=== PATIENT | male | born 1965 | race African-American/Black ===

== ENCOUNTER 2017-12-08 06:39 | Observation (INO) | payer MEDICARE, MEDICAID ==
[2017-12-08 07:39] LABS: ALT (SGPT) 8 U/L (8-55); AST (SGOT) 12 U/L (5-34); Alkaline Phosphatase 70 U/L (40-150); Anion Gap 13 mmol/L (10-20); BUN (Urea Nitrogen) 39 mg/dL (8.4-25.7); Bilirubin, Total 0.6 mg/dL (0.2-1.2); Calc. Creatinine Clearance 0 mL/min (70-130); Calcium 9.5 mg/dL (7.8-10.44); Carbon Dioxide 28 mmol/L (22-29); Chloride 103 mmol/L (98-107); Estimated GFR-MDRD 8; Glucose 89 mg/dL (70-105); Potassium 5.4 mmol/L (3.5-5.1); Sodium 139 mmol/L (136-145)
--- NOTE | 2017-12-08 07:45 | RAD ---
TWO AP VIEWS OF THE CHEST: INDICATION: Shortness of breath and wheezing. COMPARISON: Prior exam dated 10/17/12. IMPRESSION: There is an endograft stent in the region of the left subclavian and left axillary region which is ne w. Previously seen right IJ dialysis is no longer present. The lungs are hyperinflated but clear. Cardiomediastinal silhouette is within normal limits. No acute osseous abnormality is evident. POS: [facility]
[2017-12-08 07:51] LABS: #Basophils 0.1 thou/uL (0.0-0.2); #Eosinphils 2.1 thou/uL (0.0-0.7); #Lymphocytes 1.9 thou/uL (1.20-3.40); #Monocytes 0.8 thou/uL (0.11-0.59); %Eosinophils 23.5 % (0.0-10.0); %Lymphocytes 21.2 % (21.0-51.0); %Monocytes 8.8 % (0.0-10.0); %Neutrophils 45.5 % (42.0-75.0); Hemoglobin 11.4 g/dL (14.0-18.0); Mean Corpuscular HGB CONC 32.8 g/dL (32.0-36.0); Mean Corpuscular Hemoglobin 30.7 pg (27.0-31.0); Mean Corpuscular Volume 93.8 fL (78.0-98.0); Mean Platelet Volume 9.7 fL (7.4-10.4); Platelet Count 102 thou/uL (130-400); RBC Distribution Width 15.1 % (11.5-14.5); Red Blood Cell (RBC) Count 3.71 mill/uL (4.70-6.10); White Blood Cell (WBC) Count 8.9 thou/uL (4.8-10.8)
[2017-12-08] MEDS ORDERED: Magnesium 2 GM/NS 0.9% 100 ML 2 GM in Premix Bag 1 BAG IVPB SCH (08:30)
[2017-12-08] MEDS ORDERED: Magnesium Sulfate 2 GM in Sodium Chloride 0.9% 100 ML IVPB SCH (08:30)
[2017-12-08 11:28] LABS: Amphetamine Not Detected (NotDetected); Barbiturates Screen Not Detected (NotDetected); Benzodiazepine Screen Not Detected (NotDetected); Cocaine Metabolite Screen Not Detected (NotDetected); Medtox Control Line Valid? VALID (VALID); Medtox Reader # READER 1; Methadone Not Detected (NotDetected); Methamphetamine Not Detected (NotDetected); Opiate Screen Detected (NotDetected); Oxycodone Screen Not Detected (NotDetected); Phencyclidine (PCP) Not Detected (NotDetected); THC/Cannabinoid Screen Not Detected (NotDetected); Tricyclic Screen Not Detected (NotDetected)
[2017-12-08 11:33] LABS: CKMB 3.9 ng/mL (0-6.6); Troponin I Less than 0.010 ng/mL (< 0.028)
[2017-12-08] MEDS ORDERED: Ondansetron ODT 4 MG TAB PO PRN (12:55)
[2017-12-08] MEDS ORDERED: Calcium Carbonate 500 MG ChewTAB PO PRN (12:55)
[2017-12-08] MEDS ORDERED: Nitroglycerin 0.4 MG TAB (25 Tab Bottle) PO PRN (12:55)
[2017-12-08] MEDS ORDERED: Acetaminophen 325 MG TAB PO PRN (12:55)
[2017-12-08] MEDS ORDERED: Ondansetron HCl/PF 4 MG/2 ML Vial IVP PRN (12:55)
[2017-12-08] MEDS ORDERED: Milk Of Magnesia 30 ML UDCUP PO PRN (12:55)
[2017-12-08] MEDS ORDERED: Mag-Al 1200 mg/1200 mg/30 ML UDCUP PO PRN (12:55)
--- NOTE | 2017-12-08 13:10 | HP ---
DATE OF ADMISSION: 12/08/2017 PRIMARY CARE PHYSICIAN: Kaylen Kramer. PRIMARY LEGAL EXECUTIVE: Dr. Kd Munoz. CHIEF COMPLAINT: Worsening shortness of breath of 2 weeks' duration. HISTORY OF PRESENT ILLNESS: The patient is a 52-year-old male with end-stage renal disease, on hemod ialysis; chronic diastolic heart failure and hypertension, who presented to the emergency room with w orsening shortness of breath over the last 2 weeks. He was seen at [facility] 2 weeks ago and was sent home on albuterol inhaler. Despite using albuterol inhaler, his shortne ss of breath has been worsening. He also has cough that is productive of thick whitish phlegm. He i s unable to lie down flat. He feels better when he sits on the side of the bed. He also had signifi cant wheezing. No fever, chills, sick contacts, shortness of breath, palpitations, lightheadedness, dizziness, syncope, recent immobilization, travel, heartburn reported. His symptoms got worse today at the dialysis for which he was sent to the emergency room for evaluation. In the emergency room, initial vital signs showed temperature 97.5, respirations 20, pulse rate of 86 with blood pressure of 164/108 with O2 saturation 99% on room air. EKG showed sinus rhythm with nimesh e peaked T waves in the anterior leads. Chest x-ray showed mild pulmonary vascular congestion withou t any infiltrate. He received a magnesium with nebulizer treatment in the emergency room. PAST MEDICAL HISTORY: 1. Hypertension. 2. End-stage renal disease, on hemodialysis Monday, Monday, and Monday. 3. History of negative stress test 8 months ago at [facility] per patient report. 4. Former smoker, quit 3 weeks ago. PAST SURGICAL HISTORY: 1. Incision and drainage of perirectal abscess in 2011. 2. Dialysis access. 3. Right ankle repair in 2005. 4. Jaw surgery in . ALLERGIES: No known drug allergies. CURRENT HOME MEDICATIONS: The patient does not remember any of his home medications. We will try to obtain from the dialysis unit or pharmacy. SOCIAL HISTORY: The patient currently lives at home with his family. He denies any current use of s moking, alcohol or drug use. He is a former cocaine user, last use approximately 5 years ago. He qu it smoking 3 weeks ago. He makes his own decisions with the help of his family. FAMILY HISTORY: Positive for heart disease and hypertension. REVIEW OF SYSTEMS: The following complete review of systems was negative, unless otherwise mentioned in the HPI or below: Constitutional: Weight loss or gain, ability to conduct usual activities. Skin: Rash, itching. Eyes: Double vision, pain. ENT/Mouth: Nose bleeding, neck stiffness, pain, tenderness. Cardiovascular: Palpitations, dyspnea on exertion, orthopnea. Respiratory: Shortness of breath, wheezing, cough, hemoptysis, fever or night sweats. Gastrointestinal: Poor appetite, abdominal pain, heartburn, nausea, vomiting, constipation, or diarrhea. Genitourinary: Urgency, frequency, dysuria, nocturia. Musculoskeletal: Pain, swelling. Neurologic/Psychiatric: Anxiety, depression. Allergy/Immunologic: Skin rash, bleeding tendency. PHYSICAL EXAMINATION: VITAL SIGNS: As discussed above. GENERAL: A 52-year-old male in mild distress, audible wheezing heard. HEENT: Head: Atraumatic, normocephalic. Sclerae are anicteric. Moist mucous membrane. No oral le suzanne. NECK: Supple, no JVD appreciated. No carotid bruit. LUNGS: Showed diffuse expiratory wheezing with rhonchi. There was scattered rales at bases. HEART: S1, S2 present. Regular rate and rhythm. No murmur, rubs, or gallops appreciated. ABDOMEN: Soft, nontender, bowel sounds present. EXTREMITIES: No edema or calf tenderness. NEUROLOGIC: Grossly nonfocal. Moves all four extremities. PSYCHIATRY: Alert, awake, oriented x3. SKIN: Warm and dry. LYMPH NODES: No palpable lymph nodes in the neck. PERIPHERAL VASCULAR: Radial pulses palpable bilaterally. MUSCULOSKELETAL: No joint swelling or tenderness. LABORATORY FINDINGS: Potassium 5.4 with BUN 39, creatinine 8.83, sodium 139. WBC 8.9 with neutrophi l 45.5, H&H was 11.4/34.8. Chest x-ray and EKG by my review as discussed above. IMPRESSION: 1. Shortness of breath secondary to acute bronchitis with volume overload. 2. Volume overload/acute on chronic diastolic heart failure, probably precipitated by hypertensive u rgency. 3. Hypertensive urgency. The patient took all of his medications this morning per patient report. 4. End-stage renal disease, on hemodialysis Monday, Monday, and Monday. 5. Hyperkalemia. 6. Anemia secondary to renal insufficiency. 7. Secondary hyperparathyroidism. PLAN: The patient will be monitored as a 23-hour observation. Per patient report, he had a negative stress test approximately 8 months ago. We will resume all of his antihypertensives. He received 1 dose of steroids by EMS. We will continue IV steroids and add antibiotics due to significant wheezi ng. There was no pneumonia noted on the chest x-ray. Serial troponins will be obtained. Nephrology will be consulted for maintenance hemodialysis. Plan of care was discussed with the patient in detail. He stated understanding. The patient was counseled to be compliant with his medication. He was also counseled to be compliant with low salt diet. Fluid restriction was emphasized.
[2017-12-08 14:22] LABS: Troponin I 0.015 ng/mL (< 0.028)
[2017-12-08 16:37] LABS: Troponin I 0.015 ng/mL (< 0.028)
[2017-12-08] MEDS ORDERED: Loratadine 10 MG TAB PO SCH (17:00)
[2017-12-08 17:44] VITALS: BMI 21.4
[2017-12-08] MEDS: Cefdinir 300 MG CAP PO SCH (18:37)
[2017-12-08] MEDS: guaiFENesin ER 600 MG TAB PO SCH (20:13)
[2017-12-08] MEDS: Doxycycline 100 MG CAP PO SCH (20:13)
[2017-12-09 04:41] LABS: Anion Gap 15 mmol/L (10-20); BUN (Urea Nitrogen) 37 mg/dL (8.4-25.7); Calc. Creatinine Clearance 11 mL/min (70-130); Calcium 10.1 mg/dL (7.8-10.44); Carbon Dioxide 28 mmol/L (22-29); Chloride 99 mmol/L (98-107); Estimated GFR-MDRD 9; Glucose 128 mg/dL (70-105); Potassium 4.9 mmol/L (3.5-5.1); Sodium 137 mmol/L (136-145)
[2017-12-09] MEDS: guaiFENesin ER 600 MG TAB PO SCH (08:35)
[2017-12-09] MEDS: Doxycycline 100 MG CAP PO SCH (08:35)
[2017-12-09 15:25] VITALS: BP 142/82; TEMP 98.3
[2017-12-09] MEDS: Cefdinir 300 MG CAP PO SCH (16:56)
--- NOTE | 2017-12-10 09:02 | DIS ---
DATE OF DISCHARGE: 12/09/2017 DISCHARGE DISPOSITION: Home. FOLLOWUP: 1. Follow up with primary care physician at [facility]. 2. Maintenance hemodialysis per Dr. Kd Munoz. The patient was seen and examined on the day of discharge, denies any new complaints. BRIEF HOSPITAL COURSE: The patient is a 52-year-old male with end-stage renal disease on hemodialysi s, chronic diastolic heart failure and hypertension who presented to the hospital with worsening shor tness of breath of 2 weeks' duration. Please refer to the history and physical for further details. The patient was admitted to the hospital with a diagnosis of shortness of breath secondary to acute b ronchitis and volume overload. He underwent dialysis per Dr. Munoz. He was also started on steroid s with antibiotics for acute bronchitis. Today on the day of discharge, his wheezing has significant ly improved. He will be discharged home on a short taper of prednisone along with Omnicef. He appea rs stable for discharge. FINAL DIAGNOSES: 1. Shortness of breath secondary to acute bronchitis and volume overload. 2. Volume overload/acute on chronic diastolic heart failure, probably precipitated by hypertensive u rgency. 3. End-stage renal disease, on hemodialysis Monday, Monday, Monday. 4. Hyperkalemia with potassium of 5.4 on admission and so resolved. His potassium on the day of dis charge is 4.9. 5. Anemia secondary to renal insufficiency. 6. Secondary hyperparathyroidism. Plan of care was discussed with the patient in detail. He stated understanding.
== END 2017-12-09 17:28 | disposition home or self-care (01) ==
LOC: ERS 06:39 → 2SW 12:14
PROVIDERS: ADMIT Internal Medicine; ATTEND Internal Medicine
DX: J20.9 Acute bronchitis, unspecified (principal); I13.2 Hypertensive heart and chronic kidney disease with heart failure and with stage 5 chronic kidney disease, or end stage renal disease; N18.6 End stage renal disease; D63.1 Anemia in chronic kidney disease; N25.81 Secondary hyperparathyroidism of renal origin; E87.5 Hyperkalemia; I70.209 Unspecified atherosclerosis of native arteries of extremities, unspecified extremity; I50.33 Acute on chronic diastolic (congestive) heart failure; Z87.891 Personal history of nicotine dependence
CPT/HCPCS: 71045; 80048; 80053; 80306; 82553; 84484 ×2; 85025; 93005; 94640 ×3; 94760 ×2; 96365; 96375; 96376; 99285; G0378; 36415; 90935; G0257; J2920; J3475; J7050; J7620

== ENCOUNTER 2017-12-14 13:37 | Inpatient (IN) | payer MEDICARE, MEDICAID ==
[2017-12-14 14:18] LABS: #Basophils 0.1 thou/uL (0.0-0.2); #Eosinphils 0.6 thou/uL (0.0-0.7); #Lymphocytes 1.7 thou/uL (1.20-3.40); #Monocytes 0.9 thou/uL (0.11-0.59); #Neutrophils 7.3 thou/uL (1.40-6.50); %Basophils 0.6 % (0.0-1.0); %Lymphocytes 15.6 % (21.0-51.0); %Monocytes 8.8 % (0.0-10.0); %Neutrophils 68.9 % (42.0-75.0); Hemoglobin 11.1 g/dL (14.0-18.0); Mean Corpuscular HGB CONC 34.5 g/dL (32.0-36.0); Mean Corpuscular Hemoglobin 31.6 pg (27.0-31.0); Mean Corpuscular Volume 91.7 fL (78.0-98.0); Mean Platelet Volume 8.9 fL (7.4-10.4); Platelet Count 138 thou/uL (130-400); Red Blood Cell (RBC) Count 3.52 mill/uL (4.70-6.10); White Blood Cell (WBC) Count 10.7 thou/uL (4.8-10.8)
[2017-12-14 14:39] LABS: ALT (SGPT) 8 U/L (8-55); AST (SGOT) 12 U/L (5-34); Albumin 3.8 g/dL (3.5-5.0); Alkaline Phosphatase 79 U/L (40-150); Anion Gap 16 mmol/L (10-20); BUN (Urea Nitrogen) 58 mg/dL (8.4-25.7); Bilirubin, Total 0.4 mg/dL (0.2-1.2); CK (CPK) 165 U/L (30-200); Calc. Creatinine Clearance 0 mL/min (70-130); Calcium 9.7 mg/dL (7.8-10.44); Carbon Dioxide 27 mmol/L (22-29); Chloride 103 mmol/L (98-107); Estimated GFR-MDRD 7; Globulin 2.9 g/dL (2.4-3.5); Glucose 155 mg/dL (70-105); Potassium 4.4 mmol/L (3.5-5.1); Protein, Total 6.7 g/dL (6.0-8.3); Sodium 142 mmol/L (136-145)
[2017-12-14 14:43] LABS: CKMB 3.7 ng/mL (0-6.6); Troponin I 0.039 ng/mL (< 0.028)
--- NOTE | 2017-12-14 14:55 | RAD ---
AP VIEW OF THE CHEST: INDICATION: Chest pain. IMPRESSION: There is stable endovascular stent graft material seen in the left subclavicular and axillary region. There is mild right basilar atelectasis. The left lung is clear. No acute osseous abnormality is evident. POS: [facility]
--- NOTE | 2017-12-14 16:24 | HP ---
PRIMARY CARE PHYSICIAN: Kaylen Kramer. PRIMARY BICYCLE SERVICE TECHNICIAN: Dr. Kd Munoz. REASON FOR ADMISSION: Chest pain. HISTORY OF PRESENT ILLNESS: A 52-year-old -[place] male who has history of hypertension, end -stage renal disease on hemodialysis Monday, Monday, and Monday, who came to emergency room with c omplaint of chest pain. Patient reports that around 12:00 noon, when he was watching TV, at that rogerio e he was experiencing left-sided chest pain. He initially felt gas pain from medication and that dis comfort was radiating to his neck. Pain lasted for about 30 minutes. He also had 2 times vomiting. He denies any associated diaphoresis, palpitation and shortness of breath. Patient's chest pain sub sided by itself and after 1 or 2 hours later, again he had exactly similar chest pain and that is why he was concerned about heart and decided to come to the emergency room for evaluation. In the emerg ency room, he had again similar chest pain. Patient had echocardiogram which was unremarkable withou t any acute ischemic changes, but his troponin was slightly elevated. The patient reports that he to ok all his medication for blood pressure. He is due for dialysis tomorrow. At this point, we are ad mitting this patient in hospital for rule out acute coronary syndrome. He denies any relation of marcella st pain with food, respiration or activity. He denies any dizziness, syncope. He denies any orthopn ea, PND or leg swelling. He denies any fever or chills. He denies any cough. He feels that his bro nchitis significantly improved after recent admission and treated for bronchitis. He denies any hemo ptysis. He denies any constipation, diarrhea, melena or hematochezia. He denies any upper respirato ry infection at this point. He denies any sore throat. He denies any headache or focal motor or sen noemi symptoms. REVIEW OF SYSTEMS: The following complete review of systems was negative, unless otherwise mentioned in the HPI or below: Constitutional: Weight loss or gain, ability to conduct usual activities. Skin: Rash, itching. Eyes: Double vision, pain. ENT/Mouth: Nose bleeding, neck stiffness, pain, tenderness. Cardiovascular: Palpitations, dyspnea on exertion, orthopnea. Respiratory: Shortness of breath, wheezing, cough, hemoptysis, fever or night sweats. Gastrointestinal: Poor appetite, abdominal pain, heartburn, nausea, vomiting, constipation, or diarr hea. Genitourinary: Urgency, frequency, dysuria, nocturia. Musculoskeletal: Pain, swelling. Neurologic/Psychiatric: Anxiety, depression. Allergy/Immunologic: Skin rash, bleeding tendency. Please see my HPI for pertinent positive and negative. All other review of systems reviewed and nega tive except as mentioned in the HPI. PAST MEDICAL HISTORY: End-stage renal disease, on hemodialysis Monday, Monday, Monday, hypertensi on, chronic diastolic heart failure, former smoker. He quit smoking about 3 weeks ago, recent admiss ion for acute bronchitis. PAST SURGICAL HISTORY: Incision and drainage of perirectal abscess in 2011, right ankle surgery in , jaw surgery in 1979, AV fistula in left upper extremity. PAST PSYCHIATRIC HISTORY: Reviewed and negative. SOCIAL HISTORY: Patient quit smoking about 3-4 weeks ago. He currently denies any alcohol or other illicit drug abuse. He is on disability. FAMILY HISTORY: No strong family history of cancer or stroke, but heart disease and hypertension run s among several family members. ALLERGIES: No known drug allergy. CURRENT HOME MEDICATIONS: Tylenol #3 one tablet be q.12 hourly p.r.n., Proventil HFA 2 puffs q.6 bettye rly p.r.n., captopril 50 mg p.o. b.i.d., Coreg 6.25 mg p.o. b.i.d., Omnicef 300 mg p.o. b.i.d., Mucin ex 600 mg p.o. b.i.d., hydralazine 25 mg p.o. b.i.d., Combivent one inhalation q.12 hourly, losartan 100 mg p.o. daily, minoxidil 2.5 mg p.o. daily, prednisone he has only four tablets left, Hytrin 5 mg p.o. b.i.d., tramadol 50 mg p.o. b.i.d. p.r.n. EMERGENCY ROOM COURSE: Reviewed. PHYSICAL EXAMINATION: VITAL SIGNS: Currently, blood pressure 146/87, pulse 108, respiratory rate 18, temperature 98.3, sat uration 95% on room air and weight 68.4 kilograms. GENERAL: Patient is currently alert, awake, no obvious acute distress. HEAD: Normocephalic, atraumatic. EYES: Pupils round, reactive to light. Extraocular muscle intact. ENT: Oropharynx within normal limits. Moist mucous membrane, no oral lesion, no pharyngeal erythema , no exudate. NECK: Supple, no JVD, no thyromegaly, no carotid bruit. LUNGS: Clear to auscultation without any rhonchi or rales. CARDIAC: S1, S2 appears regular. No murmur elicited, no gallop, no rub. ABDOMEN: Soft, bowel sounds present, nontender, nondistended. No organomegaly, no mass, no suprapub ic tenderness. BACK: Examination unremarkable, no CVA tenderness. EXTREMITIES: Upper extremity passive movements of all joints are normal. Left upper extremity has A V fistula. Lower extremity, no edema. Good peripheral pulsation, no calf tenderness. SKIN: No skin rash. HEMATOLOGICAL SYSTEM: No lymphadenopathy. PSYCHIATRIC: Normal affect. NEUROLOGIC: Nonfocal examination. IMAGING DATA AND SIGNIFICANT LABORATORY DATA: EKG showing normal sinus rhythm, sinus tachycardia, no nspecific ST-T changes. Chest x-ray based on my review, no acute cardiopulmonary process, bibasilar atelectasis. WBC 10.7, hemoglobin 11.1, platelet 138. BMP: Sodium 142, potassium 4.4, chloride 103 , carbon dioxide 27, BUN 58, creatinine 9.98, glucose 155, calcium 9.7. LFT: AST 12, ALT 8, alkalin e phosphatase 79, albumin 3.8, CK 165, CK-MB 3.7, troponin 0.039, BNP 75.4. ASSESSMENT AND PLAN/IMPRESSION: 1. Acute chest pain. The patient has today 12:00 p.m. chest pain lasted for 30 minutes, radiated to neck with vomiting and again another episode of chest pain one hour later in the emergency room. In this way, he had 3 times recurrent chest pain concerning for unstable angina. This patient also has elevated troponin. His EKG is unremarkable. Patient will be kept in hospital for observation. We will consult Cardiology for their opinion. We will monitor troponin trend. If troponin trend is goi ng up, then he will need probably cardiac catheterization. If troponin is remaining static or going down, then we will consider doing pharmacological stress test. Meanwhile, we will continue with aspi rin 325 mg p.o. daily, nitropatch q.8 hourly. We will check lipid profile for risk stratification. We will also continue patient's home medication Coreg 6.25 mg p.o. b.i.d., hydralazine 25 mg p.o. b.i .d. and nitroglycerin on p.r.n. basis. 2. Hypertension. Currently, not well controlled, but reasonably okay. We will continue Captopril 5 0 mg p.o. b.i.d., Coreg 6.25 mg p.o. b.i.d., losartan 100 mg p.o. daily, minoxidil 2.5 mg p.o. daily, Hytrin 5 mg p.o. b.i.d., hydralazine 25 mg p.o. b.i.d. and we will use hydralazine and clonidine p.r .n. basis. 3. End-stage renal disease on hemodialysis. Patient is due for hemodialysis tomorrow. We will cons ult Dr. Kd Munoz for maintenance hemodialysis while in hospital. 4. Chronic diastolic heart failure. Currently, patient is euvolemic. 5. Anemia of renal disease. We will start Nephro-Patito one tablet p.o. daily. 6. Elevated troponin, likely related with his chest discomfort. We will monitor troponin trend whil e in hospital. 7. Deep venous thrombosis prophylaxis not needed because we are expecting discharge in 24 hours. 8. Gastrointestinal prophylaxis, Protonix 40 mg p.o. daily. CODE STATUS: The patient is FULL CODE. Patient does not have any surrogate decision maker. Disposition plan based on clinical course. We are expecting patient's stay in hospital 24-48 hours d epending upon clinical course. If his troponin is going significantly abnormal, then we will conside r changing to inpatient status. Plan of care discussed with the patient in detail.
[2017-12-14] MEDS ORDERED: HYDROcodone/Acetaminophen 5/325 mg Tablet PO PRN (17:19)
[2017-12-14] MEDS ORDERED: Eucerin (Mineral Oil/Petrolatum,White) 30 gm Jar TOP PRN (17:19)
[2017-12-14] MEDS ORDERED: Diabetic Tussin 200 MG/10 ML UDCUP PO PRN (17:19)
[2017-12-14] MEDS ORDERED: cloNIDine 0.1 MG TAB PO PRN (17:19)
[2017-12-14] MEDS ORDERED: Nitroglycerin 0.4 MG TAB (25 Tab Bottle) SL PRN (17:19)
[2017-12-14] MEDS ORDERED: Artificial Tear Sol 15 ML BOT EA EYE PRN (17:19)
[2017-12-14] MEDS ORDERED: Loratadine 10 MG TAB PO PRN (17:19)
[2017-12-14] MEDS ORDERED: Senokot 8.6 MG TAB PO PRN (17:19)
[2017-12-14] MEDS ORDERED: Sodium Chloride 0.65% Nasal 44 ML BOT EA NARE PRN (17:19)
[2017-12-14] MEDS ORDERED: Ondansetron ODT 4 MG TAB PO PRN (17:19)
[2017-12-14] MEDS ORDERED: Acetaminophen 325 MG TAB PO PRN (17:19)
[2017-12-14] MEDS ORDERED: Ondansetron HCl/PF 4 MG/2 ML Vial IVP PRN (17:19)
[2017-12-14] MEDS ORDERED: Loperamide HCl 2 MG CAP PO PRN (17:19)
[2017-12-14] MEDS ORDERED: Mag-Al 1200 mg/1200 mg/30 ML UDCUP PO PRN (17:19)
[2017-12-14] MEDS ORDERED: Chloraseptic Spray 180 ml Bottle PO PRN (17:19)
[2017-12-14] MEDS ORDERED: Zolpidem Tartrate 5 MG TAB PO PRN (17:19)
[2017-12-14] MEDS ORDERED: hydrALAZINE 20 MG/ML VIAL SLOW IVP PRN (17:19)
[2017-12-14] MEDS ORDERED: Milk Of Magnesia 30 ML UDCUP PO PRN (17:19)
[2017-12-14 17:51] VITALS: BMI 21.5
[2017-12-14 18:48] LABS: CKMB 3.4 ng/mL (0-6.6); Troponin I 0.035 ng/mL (< 0.028)
[2017-12-14] MEDS ORDERED: traMADol HCl 50 MG TAB PO PRN (19:08)
[2017-12-14] MEDS: Cefdinir 300 MG CAP PO SCH (20:07)
[2017-12-14] MEDS: predniSONE 20 MG TAB PO SCH (20:08)
[2017-12-14] MEDS: Carvedilol 6.25 MG TAB PO SCH (20:09)
[2017-12-14] MEDS: guaiFENesin ER 600 MG TAB PO SCH (20:09)
[2017-12-14] MEDS: Terazosin HCl 5 MG CAP PO SCH (20:09)
[2017-12-14] MEDS: Nitroglycerin 2% Ointment 1 INCH/1 GM Packet TOP SCH (20:32)
[2017-12-14] MEDS: PROVENTIL INHALER 6.7 G (200 INHALATIONS) INH SCH (21:20)
[2017-12-14 21:47] LABS: CKMB 3.7 ng/mL (0-6.6); Troponin I 0.041 ng/mL (< 0.028)
--- NOTE | 2017-12-14 23:13 | CON ---
DATE OF CONSULTATION: 12/14/2017 INDICATION FOR CONSULTATION: This is a 52-year-old patient who had 2 episodes of chest discomfort ea rlier today. He has risk factors for coronary artery disease, which include hypertension and end-sta ge renal disease. He denies diabetes. He also has history of tobacco abuse. He is uncertain about his cholesterol level and there had been no recent evaluation of his cholesterol since this admission . His last cholesterol level that I see in the chart over the records was in 2012. LDL was 81. HISTORY OF PRESENT ILLNESS: A very pleasant 52-year-old gentleman who has been on hemodialysis for l ast 4 years noticed some chest discomfort x2 today at around 10 o'clock and 2 o'clock. He was ____ s pecific, he was just sitting a while, where noticed the pain originally he thought it was gas. He di d have some burping and then some nausea and vomiting, and did not improve with the pain that actuall y returned. He is now actually pain free. He was seen in the emergency room. He did not recall iftikhar ng given any particular medications for the relief of the discomfort but is now resolved. He actuall y was here about 1.5 weeks ago with some bronchitis. He was treated with antibiotics and steroids. He still continues to have some expiratory wheezing but has had no previous history of chest discomfo rt in the past. He was seen here about 5 years ago and had an echocardiogram, but did not have stres s testing that I can determine and he says that he may have had a stress test earlier this year in [facility], but it sounds as if he did have one, it would have been just a Zac protocol stress test. At this time, his cardiac enzymes are indeterminate. His troponin I was 0.039. His MBs are negative. EKG is also unremarkable for any acute changes. There is no indication ST segment elevation. He di d have decreased R-wave progression in V1 and V2, which may be associated with hypertension. He does have some voltage criteria for hypertension, but there are no acute changes otherwise noted. He juarez s have a long history of hypertension and has been on dialysis most likely due to end-stage renal dis ease associated with his hypertension. PAST MEDICAL HISTORY: Significant for the end-stage renal disease and hypertension and bronchitis. SOCIAL HISTORY: He is single, has 3 children, with no heart disease. He stopped smoking about 3 wee ks ago ____ smoked for quite some time. He has no significant alcohol use. FAMILY HISTORY: Noncontributory for any early heart disease. ALLERGIES: None. PRESENT MEDICATIONS: Medications prior to admission included Apresoline Capoten, Coreg, hydrocodone/ acetaminophen, Hytrin, minoxidil, tramadol, and Combivent. REVIEW OF SYSTEMS: A 12-point review of systems is unremarkable except what was noted in the history of the present illness. He denied any other new or chronic complaints from HEENT standpoint. GI, G U, neurological, musculoskeletal, pulmonary, he did have some wheezing recently associated with his b ronchitis and may have actually has some wheezing prior to the bronchitis also and he complains of ch est discomfort, otherwise unremarkable. PHYSICAL EXAMINATION: GENERAL: Reveals a well-developed, well-nourished gentleman in no acute distress. VITAL SIGNS: Blood pressure is 156/84, heart rate was 88 and regular. He is afebrile. HEENT: Shows head to be normocephalic and atraumatic. Carotid pulses are present. There were no br uits. There are no JVD. The thyroid is not enlarged. Oral mucosa was pink and moist. CHEST: Clear to auscultation except for expiratory wheezing in late expiration, otherwise did not he ar any significant rales or rhonchi. CARDIOVASCULAR: Exam reveals a regular rate and rhythm. Normal S1, S2. There was no S3 or S4. The re were no significant murmurs, heaves, thrills, bruits, or rubs. ABDOMEN: Soft, flat, nontender. Positive bowel sounds are present. EXTREMITIES: Showed no clubbing or cyanosis. He does have evidence of multiple tattoos in the upper extremities. He also has a large hemodialysis fistula in the left arm with a good bruit. NEUROLOGICAL: Appears to be intact. SKIN: Warm and dry. IMAGING STUDIES: His EKG is noted above, shows a sinus rhythm with decreased R-wave progression in V 1 and V2 and some voltage criteria for probable left ventricular hypertrophy, otherwise unremarkable. No acute changes were noted. Enzymes showed troponin I of 0.039. His creatinine was 9.98. Hemogl obin 11.1. Potassium 4.4. IMPRESSION: 1. A 52-year-old gentleman with risk factors of coronary artery disease, which include hypertension, also tobacco abuse, and even though he has end-stage renal disease. He has been on hemodialysis. W ith the indeterminate cardiac enzymes and his symptoms, we will continue to monitor the cardiac enzym es and we will monitor the trend. Should they become more elevated, he will need to undergo cardiac catheterization or should he have more chest pain or EKG changes. Otherwise, we will plan for a stre ss test tomorrow and if this is negative, then would to continue to monitor him as an outpatient. If he has abnormalities on the stress test noted, then he will need to undergo cardiac catheterization. 2. History of hypertension. He says it has been under good control at home. At this time, it is st ill elevated. We will leave this up to discretion of the wellness coach with his hemodialysis to do wi th the hypertension. 3. History of tobacco abuse. He said he stopped smoking about 3 weeks ago, we will determine whethe r or not this will continue to be the trend. 4. History of expiratory wheezing and most likely the patient has significant chronic obstructive pu lmonary disease and may eventually need to be seen by printer slotter feeder.
[2017-12-15] MEDS: Albuterol Sulfate 2.5 mg/3 ml Neb NEB PRN ×3 (02:33→22:08)
[2017-12-15] MEDS: PROVENTIL INHALER 6.7 G (200 INHALATIONS) INH SCH ×6 (02:36→22:10)
[2017-12-15 05:44] LABS: #Eosinphils 0.1 thou/uL (0.0-0.7); #Lymphocytes 1.6 thou/uL (1.20-3.40); #Monocytes 0.7 thou/uL (0.11-0.59); #Neutrophils 9.3 thou/uL (1.40-6.50); %Basophils 0.3 % (0.0-1.0); %Eosinophils 0.9 % (0.0-10.0); %Lymphocytes 13.9 % (21.0-51.0); %Monocytes 5.8 % (0.0-10.0); %Neutrophils 79.1 % (42.0-75.0); Hemoglobin 11.3 g/dL (14.0-18.0); Mean Corpuscular HGB CONC 32.3 g/dL (32.0-36.0); Mean Corpuscular Hemoglobin 30.3 pg (27.0-31.0); Mean Corpuscular Volume 93.8 fL (78.0-98.0); Mean Platelet Volume 9.5 fL (7.4-10.4); Platelet Count 149 thou/uL (130-400); RBC Distribution Width 14.9 % (11.5-14.5); Red Blood Cell (RBC) Count 3.72 mill/uL (4.70-6.10); White Blood Cell (WBC) Count 11.7 thou/uL (4.8-10.8)
[2017-12-15 05:45] LABS: Anion Gap 16 mmol/L (10-20); BUN (Urea Nitrogen) 67 mg/dL (8.4-25.7); Calc. Creatinine Clearance 8 mL/min (70-130); Calcium 8.9 mg/dL (7.8-10.44); Carbon Dioxide 23 mmol/L (22-29); Cardiac Risk 2.2 (Less than 4.5); Chloride 105 mmol/L (98-107); Cholesterol 140 mg/dl (< 200 Desired); Estimated GFR-MDRD 6; Glucose 98 mg/dL (70-105); HDL Cholesterol 64 mg/dL (>60 Neg Risk); LDL Cholesterol, Calculated 68 mg/dL; Potassium 6.4 mmol/L (3.5-5.1); Sodium 138 mmol/L (136-145); Triglycerides 42 mg/dL (Less than 150)
[2017-12-15] MEDS: Nitroglycerin 2% Ointment 1 INCH/1 GM Packet TOP SCH ×3 (06:31→22:30)
[2017-12-15] MEDS: Losartan 25 MG TAB PO SCH (08:00)
[2017-12-15] MEDS: Terazosin HCl 5 MG CAP PO SCH ×2 (08:00→20:43)
[2017-12-15] MEDS: Aspirin 325 MG TAB PO SCH (08:00)
[2017-12-15] MEDS: Carvedilol 6.25 MG TAB PO SCH ×2 (08:00→20:43)
[2017-12-15] MEDS: guaiFENesin ER 600 MG TAB PO SCH ×2 (08:00→20:43)
[2017-12-15 09:19] LABS: Troponin I 0.047 ng/mL (< 0.028)
[2017-12-15] MEDS ORDERED: Heparin 1,000 UNITS/ML VIAL ONE (11:11)
--- NOTE | 2017-12-15 12:29 | PDOC.PN ---
- Subjective Encounter Start Date: 12/15/17 Encounter Start Time: 09:45 -: old records requested/rev Patient seen and examined. No new complaints. No overnight events last night he had gas pain and was requiring burping and after that he felt better - Objective Resuscitation Status: Resuscitation Status FULL:Full Resuscitation MAR Reviewed: Yes Vital Signs & Weight: Vital Signs (12 hours) Temp Pulse Resp BP BP Pulse Ox 12/15/17 11:53 97.6 F 79 18 159/84 H 92 L 12/15/17 08:00 97.7 F 80 16 12/15/17 07:11 97.7 F 80 16 121/73 93 L 12/15/17 07:10 84 16 93 L 12/15/17 04:06 98.0 F 86 20 137/80 99 12/15/17 02:33 89 14 99 Weight Weight 153 lb 1.6 oz I&O: 12/14/17 12/15/17 12/16/17 06:59 06:59 06:59 Intake Total 440 Output Total 150 Balance 290 Result Diagrams: 12/15/17 04:06 12/15/17 04:06 EKG Reviewed by me: Yes (nsr) Phys Exam - Physical Examination Constitutional: NAD HEENT: PERRLA, moist MMs, sclera anicteric Neck: no JVD, supple Respiratory: no wheezing, no rales, no rhonchi, clear to auscultation bilateral Cardiovascular: RRR, no significant murmur, no rub Gastrointestinal: soft, non-tender, no distention, positive bowel sounds Musculoskeletal: no edema, pulses present Neurological: non-focal, normal sensation Psychiatric: normal affect, A&O x 3 Skin: no rash, normal turgor Dx/Plan (1) Chest pain Code(s): R07.9 - CHEST PAIN, UNSPECIFIED Status: Acute (2) Elevated troponin Code(s): R74.8 - ABNORMAL LEVELS OF OTHER SERUM ENZYMES Status: Acute (3) Hyperkalemia, diminished renal excretion Code(s): E87.5 - HYPERKALEMIA Status: Acute (4) Anemia of renal disease Code(s): D63.1 - ANEMIA IN CHRONIC KIDNEY DISEASE Status: Chronic (5) ESRD (end stage renal disease) on dialysis Code(s): N18.6 - END STAGE RENAL DISEASE; Z99.2 - DEPENDENCE ON RENAL DIALYSIS Status: Chronic (6) Ex-smoker Status: Chronic (7) Hypertension Code(s): I10 - ESSENTIAL (PRIMARY) HYPERTENSION Status: Chronic - Plan cont current plan of care * cardiology recommendation noted * stress test ordered * suspected gerd, will give protonix don discharge * today will need HD * medication reviewed as below * symptomatic treatment * discharge based on stress test result, if negative - home, if positive, then may need cardiac cath. Review of Systems - Review of Systems Eyes: negative: Pain, Vision Change, Conjunctivae Inflammation, Eyelid Inflammation, Redness, Other ENT: negative: Ear Pain, Ear Discharge, Nose Pain, Nose Discharge, Nose Congestion, Mouth Pain, Mouth Swelling, Throat Pain, Throat Swelling, Other Respiratory: negative: Cough, Dry, Shortness of Breath, Hemoptysis, SOB with Excertion, Pleuritic Pain, Sputum, Wheezing Cardiovascular: negative: chest pain, palpitations, orthopnea, paroxysmal nocturnal dyspnea, edema, light headedness, other Gastrointestinal: negative: Nausea, Vomiting, Abdominal Pain, Diarrhea, Constipation, Melena, Hematochezia, Other Genitourinary: negative: Dysuria, Frequency, Incontinence, Hematuria, Retention , Other Musculoskeletal: negative: Neck Pain, Shoulder Pain, Arm Pain, Back Pain, Hand Pain, Leg Pain, Foot Pain, Other Skin: negative: Rash, Lesions, Pablo, Bruising, Other - Medications/Allergies Allergies/Adverse Reactions: Allergies Allergy/AdvReac Type Severity Reaction Status Date / Time No Known Drug Allergies Allergy Verified 12/08/17 08:24 Medications: Current Medications Acetaminophen (Tylenol) 650 mg PO Q4H PRN PRN Reason: Headache/Fever or Pain Hydrocodone Bitart/Acetaminophen ([place] 5/325) 1 tab PO Q4H PRN PRN Reason: Moderate Pain (4-6) Al Hydroxide/Mg Hydroxide (Maalox) 30 ml PO Q6H PRN PRN Reason: Heartburn or Indigestion Albuterol Sulfate (Proventil Hfa) 2 puff INH [id number] SHADI Last Admin: 12/15/17 10:32 Dose: Not Given Albuterol Sulfate (Ventolin) 2.5 mg NEB Q2H PRN PRN Reason: SOB/WHEEZE Last Admin: 12/15/17 07:10 Dose: 2.5 mg Artificial Tears (Tears Renewed 15ml Bottle) 0 drop EA EYE PRN PRN PRN Reason: Dry Eyes Aspirin (Aspirin) 325 mg PO DAILY [facility] Carvedilol (Coreg) 6.25 mg PO BID [facility] Last Admin: 12/14/17 20:09 Dose: 6.25 mg Cefdinir (Omnicef) 300 mg PO QPM [facility] Last Admin: 12/14/17 20:07 Dose: 300 mg Clonidine (Catapres) 0.1 mg PO Q4H PRN PRN Reason: Systolic BP > 180 Guaifenesin (Robitussin Sf) 200 mg PO Q4H PRN PRN Reason: Cough Guaifenesin (Mucinex) 600 mg PO Q12HR [facility] Last Admin: 12/14/17 20:09 Dose: 600 mg Hydralazine HCl (Apresoline) 10 mg SLOW IVP Q4H PRN PRN Reason: Systolic BP > 180 Loperamide HCl (Imodium) 2 mg PO PRN PRN PRN Reason: Diarrhea/Loose Stools Loratadine (Claritin) 10 mg PO Q2DAYS@1700 [facility] Losartan Potassium (Cozaar) 100 mg PO DAILY [facility] Magnesium Hydroxide (Milk Of Magnesium) 30 ml PO DAILYPRN PRN PRN Reason: Constipation Mineral Oil/White Petrolatum (Eucerin Cream) 0 gm TOP BIDPRN PRN PRN Reason: Dry Skin Nitroglycerin (Nitrostat) 0.4 mg SL Q5MIN PRN PRN Reason: Chest Pain Nitroglycerin (Nitro-Bid 2% Ointment) 0.5 inch TOP Q8HR [facility] Last Admin: 12/15/17 06:31 Dose: Not Given Ondansetron HCl (Zofran Odt) 4 mg PO Q6H PRN PRN Reason: Nausea/Vomiting Ondansetron HCl (Zofran) 4 mg IVP Q6H PRN PRN Reason: Nausea/Vomiting Pantoprazole Sodium (Protonix) 40 mg PO DAILY [facility] Phenol (Chloraseptic [place] 180 Ml Bot) 0 ml PO PRN PRN PRN Reason: Sore Throat Prednisone (Prednisone) 10 mg PO BID [facility] Stop: 12/17/17 09:01 Last Admin: 12/14/17 20:08 Dose: 10 mg Prednisone (Prednisone) 10 mg PO QAM [facility] Stop: 12/21/17 09:01 Senna (Senokot) 2 tab PO HSPRN PRN PRN Reason: Constipation Sodium Chloride ([place] Nasal [place] 0.65%) 0 ml EA NARE QIDPRN PRN PRN Reason: Nasal Congestion Terazosin HCl (Hytrin) 5 mg PO BID [facility] Last Admin: 12/14/17 20:09 Dose: 5 mg Tramadol HCl (Ultram) 50 mg PO BID PRN PRN Reason: Pain Zolpidem Tartrate (Ambien) 5 mg PO HSPRN PRN PRN Reason: Insomnia
--- NOTE | 2017-12-15 13:08 | NM ---
NUCLEAR MEDICINE CARDIAC STRESS WITH EJECTION FRACTION: HISTORY: Chest pain. COMPARISON: None. TECHNIQUE: Stress and rest performed after intravenous administration of 27 and 9 mCi Technetium 99m sestamibi. There is an area of low-grade ischemia on the mid septal wall. Normal cardiac motion. Calculated ej ection fraction is 66%, normal. IMPRESSION: Low-grade ischemia of the mid septum. POS: [facility]
--- NOTE | 2017-12-15 14:20 | PDOC.CTH ---
<Kelly Hook - Last Filed: 12/15/17 14:17> Cardiology Progress Note - Subjective The pt seen and examined. No overnight events. No cardiac complaints. Had Echo and Stress test today and the results are pending. - Objective Vital Signs Temp Pulse Resp BP BP Pulse Ox 12/15/17 11:53 97.6 F 79 18 159/84 H 92 L 12/15/17 08:00 97.7 F 80 16 12/15/17 07:11 97.7 F 80 16 121/73 93 L 12/15/17 07:10 84 16 93 L 12/15/17 04:06 98.0 F 86 20 137/80 99 12/15/17 02:33 89 14 99 Weight 153 lb 1.6 oz 12/14/17 12/15/17 12/16/17 06:59 06:59 06:59 Intake Total 440 Output Total 150 Balance 290 - Physical Examination General/Neuro: alert & oriented x3 Neck: no JVD present Lungs: CTA Heart: RRR Abdomen: soft Extremities: other: (No edema) - Telemetry Telemetry Rhythm: SR - Labs Result Diagrams: 12/15/17 04:06 12/15/17 04:06 Troponin/CKMB CK-MB (CK-2) 3.7 ng/mL (0-6.6) 12/14/17 21:16 Troponin I 0.047 ng/mL (< 0.028) H 12/15/17 04:06 - Assessment/Plan 1. Indeterminent Trop - Stress test result is pending at this time;if negative - home, if positive, then may need cardiac cath. @. HTN - Losartan was resumed from today 3. ESRD with HD on MWF - managed by prism inspector 4. Hyperkalemia - on HD today 5. Ex smoker - MAR reviewed Review of Systems - Review of Systems Constitutional: reports: no symptoms reported EENTM: reports: no symptoms reported Respiratory: reports: no symptoms reported Cardiac (ROS): reports: no symptoms reported ABD/GI: reports: no symptoms reported : reports: no symptoms reported Musculoskeletal: reports: no symptoms reported Skin: reports: no symptoms reported <Michael Camacho - Last Filed: 12/15/17 23:04> Cardiology Progress Note - Objective Vital Signs Temp Pulse Resp BP Pulse Ox 12/15/17 22:29 107 H 16 97/63 12/15/17 22:08 106 H 20 92 L 12/15/17 20:36 97.7 F 91 20 138/83 93 L Weight 142 lb 9.6 oz - Labs Result Diagrams: 12/15/17 04:06 12/15/17 04:06 Troponin/CKMB CK-MB (CK-2) 3.7 ng/mL (0-6.6) 12/14/17 21:16 Troponin I 0.047 ng/mL (< 0.028) H 12/15/17 04:06 - Assessment/Plan Pt. seen and eval. by me. The stress results indicated septal ischemia. Given his presentation and risks for CAD with an abnormal stress test, I have advised a cardiac cath. He will have dialysis today and likely again on Monday or Monday and will need repeat dialysis probbly after cardiac cath. I have explained the procedure and risks to the pt. to include infection,NH,CVA or . He understands and agrees to proceed. I will plan for the procedure on Monday. I agree with the remainder of the A/P by the THREADING MACHINE TENDER.
[2017-12-15] MEDS: predniSONE 20 MG TAB PO SCH ×2 (14:25→20:42)
[2017-12-15] MEDS ORDERED: Communication Order-Pharmacy FS SCH (14:30)
[2017-12-15] MEDS ORDERED: Regadenoson 0.4 MG/5 ML SYRINGE ONE (15:44)
[2017-12-15] MEDS ORDERED: Sodium Chloride 0.9% 10 ML ONE (20:06)
[2017-12-15] MEDS: Cefdinir 300 MG CAP PO SCH (20:42)
[2017-12-16] MEDS: Albuterol Sulfate 2.5 mg/3 ml Neb NEB PRN ×3 (02:16→22:33)
[2017-12-16] MEDS: PROVENTIL INHALER 6.7 G (200 INHALATIONS) INH SCH ×6 (02:18→22:36)
[2017-12-16] MEDS: Nitroglycerin 2% Ointment 1 INCH/1 GM Packet TOP SCH ×4 (05:42→23:42)
[2017-12-16] MEDS: predniSONE 20 MG TAB PO SCH ×2 (09:45→21:38)
[2017-12-16] MEDS: Losartan 25 MG TAB PO SCH (09:46)
[2017-12-16] MEDS: guaiFENesin ER 600 MG TAB PO SCH ×2 (09:46→21:36)
[2017-12-16] MEDS: Carvedilol 6.25 MG TAB PO SCH ×2 (09:46→21:37)
[2017-12-16] MEDS: Aspirin 325 MG TAB PO SCH (09:46)
[2017-12-16] MEDS: Terazosin HCl 5 MG CAP PO SCH ×2 (09:46→21:38)
--- NOTE | 2017-12-16 11:15 | PDOC.PN ---
- Subjective Encounter Start Date: 12/16/17 Encounter Start Time: 07:50 -: old records requested/rev Patient seen and examined. No new complaints. No overnight events - Objective MAR Reviewed: Yes Vital Signs & Weight: Vital Signs (12 hours) Temp Pulse Resp BP BP Pulse Ox 12/16/17 09:46 131/77 12/16/17 07:15 98.4 F 82 16 131/77 94 L 12/16/17 07:10 98.4 F 82 16 94 L 12/16/17 05:02 97.7 F 81 18 125/71 94 L 12/16/17 02:16 97 14 91 L 12/15/17 23:35 100 16 127/72 Weight Weight 143 lb 9.6 oz I&O: 12/15/17 12/16/17 12/17/17 06:59 06:59 06:59 Intake Total 250 Output Total 2500 Balance -2250 Result Diagrams: 12/15/17 04:06 12/15/17 04:06 EKG Reviewed by me: Yes (nsr) Phys Exam - Physical Examination Constitutional: NAD HEENT: PERRLA, moist MMs, sclera anicteric Neck: no JVD, supple Respiratory: no wheezing, no rales, no rhonchi Cardiovascular: RRR, no significant murmur, no rub Gastrointestinal: soft, non-tender, no distention, positive bowel sounds Musculoskeletal: no edema, pulses present Neurological: non-focal, normal sensation, moves all 4 limbs Psychiatric: normal affect, A&O x 3 Skin: no rash, normal turgor Dx/Plan (1) Chest pain Code(s): R07.9 - CHEST PAIN, UNSPECIFIED Status: Acute (2) Elevated troponin Code(s): R74.8 - ABNORMAL LEVELS OF OTHER SERUM ENZYMES Status: Acute (3) Hyperkalemia, diminished renal excretion Code(s): E87.5 - HYPERKALEMIA Status: Acute (4) Anemia of renal disease Code(s): D63.1 - ANEMIA IN CHRONIC KIDNEY DISEASE Status: Chronic (5) ESRD (end stage renal disease) on dialysis Code(s): N18.6 - END STAGE RENAL DISEASE; Z99.2 - DEPENDENCE ON RENAL DIALYSIS Status: Chronic (6) Ex-smoker Status: Chronic (7) Hypertension Code(s): I10 - ESSENTIAL (PRIMARY) HYPERTENSION Status: Chronic (8) Abnormal stress test Status: Acute (9) Chronic diastolic (congestive) heart failure Code(s): I50.32 - CHRONIC DIASTOLIC (CONGESTIVE) HEART FAILURE Status: Chronic (10) LVH (left ventricular hypertrophy) due to hypertensive disease Code(s): I11.9 - HYPERTENSIVE HEART DISEASE WITHOUT HEART FAILURE Status: Chronic - Plan cont current plan of care * medication reviewed as below * symptomatic treatment * pt will need cardiac cath on monday * HD as per nephrology while in hospital. Review of Systems - Review of Systems Eyes: negative: Pain, Vision Change, Conjunctivae Inflammation, Eyelid Inflammation, Redness, Other ENT: negative: Ear Pain, Ear Discharge, Nose Pain, Nose Discharge, Nose Congestion, Mouth Pain, Mouth Swelling, Throat Pain, Throat Swelling, Other Respiratory: negative: Cough, Dry, Shortness of Breath, Hemoptysis, SOB with Excertion, Pleuritic Pain, Sputum, Wheezing Cardiovascular: negative: chest pain, palpitations, orthopnea, paroxysmal nocturnal dyspnea, edema, light headedness, other Gastrointestinal: negative: Nausea, Vomiting, Abdominal Pain, Diarrhea, Constipation, Melena, Hematochezia, Other Genitourinary: negative: Dysuria, Frequency, Incontinence, Hematuria, Retention , Other Musculoskeletal: negative: Neck Pain, Shoulder Pain, Arm Pain, Back Pain, Hand Pain, Leg Pain, Foot Pain, Other Skin: negative: Rash, Lesions, Pablo, Bruising, Other - Medications/Allergies Allergies/Adverse Reactions: Allergies Allergy/AdvReac Type Severity Reaction Status Date / Time No Known Drug Allergies Allergy Verified 12/08/17 08:24 Medications: Current Medications Acetaminophen (Tylenol) 650 mg PO Q4H PRN PRN Reason: Headache/Fever or Pain Hydrocodone Bitart/Acetaminophen ([place] 5/325) 1 tab PO Q4H PRN PRN Reason: Moderate Pain (4-6) Al Hydroxide/Mg Hydroxide (Maalox) 30 ml PO Q6H PRN PRN Reason: Heartburn or Indigestion Albuterol Sulfate (Proventil Hfa) 2 puff INH [id number] SHADI Last Admin: 12/16/17 10:31 Dose: 2 puff Albuterol Sulfate (Ventolin) 2.5 mg NEB Q2H PRN PRN Reason: SOB/WHEEZE Last Admin: 12/16/17 02:16 Dose: 2.5 mg Artificial Tears (Tears Renewed 15ml Bottle) 0 drop EA EYE PRN PRN PRN Reason: Dry Eyes Aspirin (Aspirin) 325 mg PO DAILY [facility] Last Admin: 12/16/17 09:46 Dose: 325 mg Carvedilol (Coreg) 6.25 mg PO BID [facility] Last Admin: 12/16/17 09:46 Dose: 6.25 mg Cefdinir (Omnicef) 300 mg PO QPM [facility] Last Admin: 12/15/17 20:42 Dose: 300 mg Clonidine (Catapres) 0.1 mg PO Q4H PRN PRN Reason: Systolic BP > 180 Guaifenesin (Robitussin Sf) 200 mg PO Q4H PRN PRN Reason: Cough Guaifenesin (Mucinex) 600 mg PO Q12HR [facility] Last Admin: 12/16/17 09:46 Dose: 600 mg Hydralazine HCl (Apresoline) 10 mg SLOW IVP Q4H PRN PRN Reason: Systolic BP > 180 Loperamide HCl (Imodium) 2 mg PO PRN PRN PRN Reason: Diarrhea/Loose Stools Loratadine (Claritin) 10 mg PO Q2DAYS@1700 [facility] Losartan Potassium (Cozaar) 100 mg PO DAILY [facility] Last Admin: 12/16/17 09:46 Dose: 100 mg Magnesium Hydroxide (Milk Of Magnesium) 30 ml PO DAILYPRN PRN PRN Reason: Constipation Mineral Oil/White Petrolatum (Eucerin Cream) 0 gm TOP BIDPRN PRN PRN Reason: Dry Skin Miscellaneous Information (Communication Order-Pharmacy) 0 each FS ONE [facility] Stop: 12/18/17 23:59 Nitroglycerin (Nitrostat) 0.4 mg SL Q5MIN PRN PRN Reason: Chest Pain Nitroglycerin (Nitro-Bid 2% Ointment) 0.5 inch TOP Q8HR [facility] Last Admin: 12/16/17 05:42 Dose: Not Given Ondansetron HCl (Zofran Odt) 4 mg PO Q6H PRN PRN Reason: Nausea/Vomiting Ondansetron HCl (Zofran) 4 mg IVP Q6H PRN PRN Reason: Nausea/Vomiting Pantoprazole Sodium (Protonix) 40 mg PO DAILY [facility] Last Admin: 12/16/17 09:46 Dose: 40 mg Phenol (Chloraseptic [place] 180 Ml Bot) 0 ml PO PRN PRN PRN Reason: Sore Throat Prednisone (Prednisone) 10 mg PO BID [facility] Stop: 12/17/17 09:01 Last Admin: 12/16/17 09:45 Dose: 10 mg Prednisone (Prednisone) 10 mg PO QAM [facility] Stop: 12/21/17 09:01 Senna (Senokot) 2 tab PO HSPRN PRN PRN Reason: Constipation Sodium Chloride ([place] Nasal [place] 0.65%) 0 ml EA NARE QIDPRN PRN PRN Reason: Nasal Congestion Terazosin HCl (Hytrin) 5 mg PO BID [facility] Last Admin: 12/16/17 09:46 Dose: 5 mg Tramadol HCl (Ultram) 50 mg PO BID PRN PRN Reason: Pain Zolpidem Tartrate (Ambien) 5 mg PO HSPRN PRN PRN Reason: Insomnia
--- NOTE | 2017-12-16 13:28 | PDOC.CTH ---
Cardiology Progress Note - Subjective Awake, watching TV. Denies chest pain, shortness of breath. Questions answered re: cardiac cath. No overnight events. - Objective Vital Signs Temp Pulse Resp BP BP Pulse Ox 12/16/17 09:46 131/77 12/16/17 07:15 98.4 F 82 16 131/77 94 L 12/16/17 07:10 98.4 F 82 16 94 L 12/16/17 05:02 97.7 F 81 18 125/71 94 L 12/16/17 02:16 97 14 91 L Weight 143 lb 9.6 oz 12/15/17 12/16/17 12/17/17 06:59 06:59 06:59 Intake Total 250 Output Total 2500 Balance -2250 - Physical Examination General/Neuro: alert & oriented x3, NAD Neck: no JVD present Lungs: unlabored respirations Heart: RRR Abdomen: NT/ND, soft - Telemetry Telemetry Rhythm: SR - Labs Result Diagrams: 12/15/17 04:06 12/15/17 04:06 Troponin/CKMB CK-MB (CK-2) 3.7 ng/mL (0-6.6) 12/14/17 21:16 Troponin I 0.047 ng/mL (< 0.028) H 12/15/17 04:06 - Assessment/Plan 1. Ind troponin, abnormal OUTSIDE FOOD SERVER-OUTSIDE FOOD SERVER revealed septal ischemia, plan for [facility] Monday morning. Will need HD following procedure. No anginal symptoms. 2. HTN-echocardiogram revealed severe LVH, BP controlled. 3. ESRD-on HD, M/W/F, managed by 4. Hyperkalemia-HD 12/15, check BMP in am 5. Diastolic Dysfunction-appears euvolemic, no edema. BNP 75. 5. Ex smoker
[2017-12-16] MEDS: Loratadine 10 MG TAB PO SCH (17:14)
[2017-12-16] MEDS: Cefdinir 300 MG CAP PO SCH (21:37)
[2017-12-17] MEDS: Albuterol Sulfate 2.5 mg/3 ml Neb NEB PRN ×3 (02:27→22:23)
[2017-12-17] MEDS: PROVENTIL INHALER 6.7 G (200 INHALATIONS) INH SCH ×6 (02:30→22:23)
[2017-12-17 04:52] LABS: #Basophils 0.1 thou/uL (0.0-0.2); #Eosinphils 0.1 thou/uL (0.0-0.7); #Lymphocytes 1.6 thou/uL (1.20-3.40); #Monocytes 0.7 thou/uL (0.11-0.59); #Neutrophils 11.7 thou/uL (1.40-6.50); %Basophils 0.5 % (0.0-1.0); %Eosinophils 0.4 % (0.0-10.0); %Lymphocytes 11.5 % (21.0-51.0); %Monocytes 4.7 % (0.0-10.0); %Neutrophils 82.9 % (42.0-75.0); Hemoglobin 11.3 g/dL (14.0-18.0); Mean Corpuscular HGB CONC 32.5 g/dL (32.0-36.0); Mean Corpuscular Hemoglobin 30.3 pg (27.0-31.0); Mean Corpuscular Volume 93.3 fL (78.0-98.0); Mean Platelet Volume 9.5 fL (7.4-10.4); Platelet Count 169 thou/uL (130-400); RBC Distribution Width 14.9 % (11.5-14.5); Red Blood Cell (RBC) Count 3.71 mill/uL (4.70-6.10); White Blood Cell (WBC) Count 14.2 thou/uL (4.8-10.8)
[2017-12-17 05:09] LABS: Anion Gap 13 mmol/L (10-20); BUN (Urea Nitrogen) 57 mg/dL (8.4-25.7); Calc. Creatinine Clearance 8 mL/min (70-130); Calcium 9.3 mg/dL (7.8-10.44); Carbon Dioxide 26 mmol/L (22-29); Chloride 103 mmol/L (98-107); Estimated GFR-MDRD 7; Glucose 98 mg/dL (70-105); Potassium 5.4 mmol/L (3.5-5.1); Sodium 137 mmol/L (136-145)
[2017-12-17] MEDS: Nitroglycerin 2% Ointment 1 INCH/1 GM Packet TOP SCH ×3 (06:12→20:52)
[2017-12-17] MEDS: Losartan 25 MG TAB PO SCH (08:42)
[2017-12-17] MEDS: Terazosin HCl 5 MG CAP PO SCH ×2 (08:42→20:54)
[2017-12-17] MEDS: Aspirin 325 MG TAB PO SCH (08:42)
[2017-12-17] MEDS: predniSONE 20 MG TAB PO SCH (08:42)
[2017-12-17] MEDS: guaiFENesin ER 600 MG TAB PO SCH ×2 (08:42→20:54)
[2017-12-17] MEDS: Carvedilol 6.25 MG TAB PO SCH ×2 (08:42→20:54)
--- NOTE | 2017-12-17 09:56 | PDOC.PN ---
- Subjective Encounter Start Date: 12/17/17 Encounter Start Time: 08:10 Patient seen and examined. No new complaints. No overnight events - Objective MAR Reviewed: Yes Vital Signs & Weight: Vital Signs (12 hours) Temp Pulse Resp BP BP Pulse Ox 12/17/17 08:42 147/86 H 12/17/17 07:13 98.0 F 73 16 93 L 12/17/17 07:10 98.0 F 73 16 147/86 H 93 L 12/17/17 04:55 98.7 F 72 16 138/80 91 L 12/17/17 02:27 81 12 90 L 12/16/17 23:33 99.2 F 77 14 136/79 92 L 12/16/17 22:33 86 14 91 L Weight Weight 147 lb 3.2 oz I&O: 12/16/17 12/17/17 12/18/17 06:59 06:59 06:59 Intake Total 250 480 Output Total 2500 175 Balance -2250 305 Result Diagrams: 12/17/17 03:56 12/17/17 03:56 EKG Reviewed by me: Yes (nsr) Phys Exam - Physical Examination Constitutional: NAD HEENT: PERRLA, moist MMs, sclera anicteric Neck: no JVD, supple Respiratory: no wheezing, no rales, no rhonchi Cardiovascular: RRR, no significant murmur, no rub Gastrointestinal: soft, non-tender, no distention, positive bowel sounds Musculoskeletal: no edema, pulses present Neurological: non-focal, normal sensation, moves all 4 limbs Psychiatric: normal affect, A&O x 3 Skin: no rash, normal turgor Dx/Plan (1) Chest pain Code(s): R07.9 - CHEST PAIN, UNSPECIFIED Status: Acute (2) Elevated troponin Code(s): R74.8 - ABNORMAL LEVELS OF OTHER SERUM ENZYMES Status: Acute (3) Hyperkalemia, diminished renal excretion Code(s): E87.5 - HYPERKALEMIA Status: Acute (4) Anemia of renal disease Code(s): D63.1 - ANEMIA IN CHRONIC KIDNEY DISEASE Status: Chronic (5) ESRD (end stage renal disease) on dialysis Code(s): N18.6 - END STAGE RENAL DISEASE; Z99.2 - DEPENDENCE ON RENAL DIALYSIS Status: Chronic (6) Ex-smoker Status: Chronic (7) Hypertension Code(s): I10 - ESSENTIAL (PRIMARY) HYPERTENSION Status: Chronic (8) Abnormal stress test Status: Acute (9) Chronic diastolic (congestive) heart failure Code(s): I50.32 - CHRONIC DIASTOLIC (CONGESTIVE) HEART FAILURE Status: Chronic (10) LVH (left ventricular hypertrophy) due to hypertensive disease Code(s): I11.9 - HYPERTENSIVE HEART DISEASE WITHOUT HEART FAILURE Status: Chronic - Plan cont current plan of care * keep npo after midnight for cardiac cath tomorrow * based on cardiac cath will decide if he can be discharged tomorrow * HD as per nephrology * medication reviewed as below * symptomatic treatment. Review of Systems - Review of Systems Eyes: negative: Pain, Vision Change, Conjunctivae Inflammation, Eyelid Inflammation, Redness, Other ENT: negative: Ear Pain, Ear Discharge, Nose Pain, Nose Discharge, Nose Congestion, Mouth Pain, Mouth Swelling, Throat Pain, Throat Swelling, Other Respiratory: negative: Cough, Dry, Shortness of Breath, Hemoptysis, SOB with Excertion, Pleuritic Pain, Sputum, Wheezing Cardiovascular: negative: chest pain, palpitations, orthopnea, paroxysmal nocturnal dyspnea, edema, light headedness, other Gastrointestinal: negative: Nausea, Vomiting, Abdominal Pain, Diarrhea, Constipation, Melena, Hematochezia, Other Genitourinary: negative: Dysuria, Frequency, Incontinence, Hematuria, Retention , Other Musculoskeletal: negative: Neck Pain, Shoulder Pain, Arm Pain, Back Pain, Hand Pain, Leg Pain, Foot Pain, Other Skin: negative: Rash, Lesions, Pablo, Bruising, Other - Medications/Allergies Allergies/Adverse Reactions: Allergies Allergy/AdvReac Type Severity Reaction Status Date / Time No Known Drug Allergies Allergy Verified 12/08/17 08:24 Medications: Current Medications Acetaminophen (Tylenol) 650 mg PO Q4H PRN PRN Reason: Headache/Fever or Pain Hydrocodone Bitart/Acetaminophen ([place] 5/325) 1 tab PO Q4H PRN PRN Reason: Moderate Pain (4-6) Al Hydroxide/Mg Hydroxide (Maalox) 30 ml PO Q6H PRN PRN Reason: Heartburn or Indigestion Albuterol Sulfate (Proventil Hfa) 2 puff INH [id number] [facility]AD[facility] Last Admin: 12/17/17 07:03 Dose: 2 puff Albuterol Sulfate (Ventolin) 2.5 mg NEB Q2H PRN PRN Reason: SOB/WHEEZE Last Admin: 12/17/17 02:27 Dose: 2.5 mg Artificial Tears (Tears Renewed 15ml Bottle) 0 drop EA EYE PRN PRN PRN Reason: Dry Eyes Aspirin (Aspirin) 325 mg PO DAILY [facility] Last Admin: 12/17/17 08:42 Dose: 325 mg Carvedilol (Coreg) 6.25 mg PO BID [facility] Last Admin: 12/17/17 08:42 Dose: 6.25 mg Cefdinir (Omnicef) 300 mg PO QPM [facility] Last Admin: 12/16/17 21:37 Dose: 300 mg Clonidine (Catapres) 0.1 mg PO Q4H PRN PRN Reason: Systolic BP > 180 Guaifenesin (Robitussin Sf) 200 mg PO Q4H PRN PRN Reason: Cough Guaifenesin (Mucinex) 600 mg PO Q12HR [facility] Last Admin: 12/17/17 08:42 Dose: 600 mg Hydralazine HCl (Apresoline) 10 mg SLOW IVP Q4H PRN PRN Reason: Systolic BP > 180 Loperamide HCl (Imodium) 2 mg PO PRN PRN PRN Reason: Diarrhea/Loose Stools Loratadine (Claritin) 10 mg PO Q2DAYS@1700 [facility] Last Admin: 12/16/17 17:14 Dose: Not Given Losartan Potassium (Cozaar) 100 mg PO DAILY [facility] Last Admin: 12/17/17 08:42 Dose: 100 mg Magnesium Hydroxide (Milk Of Magnesium) 30 ml PO DAILYPRN PRN PRN Reason: Constipation Mineral Oil/White Petrolatum (Eucerin Cream) 0 gm TOP BIDPRN PRN PRN Reason: Dry Skin Miscellaneous Information (Communication Order-Pharmacy) 0 each FS ONE [facility] Stop: 12/18/17 23:59 Nitroglycerin (Nitrostat) 0.4 mg SL Q5MIN PRN PRN Reason: Chest Pain Nitroglycerin (Nitro-Bid 2% Ointment) 0.5 inch TOP Q8HR [facility] Last Admin: 12/17/17 06:12 Dose: 0.5 inch Ondansetron HCl (Zofran Odt) 4 mg PO Q6H PRN PRN Reason: Nausea/Vomiting Ondansetron HCl (Zofran) 4 mg IVP Q6H PRN PRN Reason: Nausea/Vomiting Pantoprazole Sodium (Protonix) 40 mg PO DAILY [facility] Last Admin: 12/17/17 08:42 Dose: 40 mg Phenol (Chloraseptic [place] 180 Ml Bot) 0 ml PO PRN PRN PRN Reason: Sore Throat Prednisone (Prednisone) 10 mg PO QAM [facility] Stop: 12/21/17 09:01 Senna (Senokot) 2 tab PO HSPRN PRN PRN Reason: Constipation Sodium Chloride ([place] Nasal [place] 0.65%) 0 ml EA NARE QIDPRN PRN PRN Reason: Nasal Congestion Terazosin HCl (Hytrin) 5 mg PO BID [facility] Last Admin: 12/17/17 08:42 Dose: 5 mg Tramadol HCl (Ultram) 50 mg PO BID PRN PRN Reason: Pain Zolpidem Tartrate (Ambien) 5 mg PO HSPRN PRN PRN Reason: Insomnia
--- NOTE | 2017-12-17 10:03 | PDOC.CTH ---
Cardiology Progress Note - Subjective Awake, feeling good. Denies any acute complaints of chest pain or shortness of breath. Discussed LHC, likely tomorrow am. All questions asked/answered. No overnight cardiac events. - Objective Vital Signs Temp Pulse Resp BP BP Pulse Ox 12/17/17 08:42 147/86 H 12/17/17 07:13 98.0 F 73 16 93 L 12/17/17 07:10 98.0 F 73 16 147/86 H 93 L 12/17/17 04:55 98.7 F 72 16 138/80 91 L 12/17/17 02:27 81 12 90 L 12/16/17 23:33 99.2 F 77 14 136/79 92 L 12/16/17 22:33 86 14 91 L Weight 147 lb 3.2 oz 12/16/17 12/17/17 12/18/17 06:59 06:59 06:59 Intake Total 250 480 Output Total 2500 175 Balance -2250 305 - Physical Examination General/Neuro: alert & oriented x3, NAD Neck: no JVD present Lungs: CTA, unlabored respirations Heart: RRR Abdomen: NT/ND, soft - Telemetry Telemetry Rhythm: SR, peaked T waves - Labs Result Diagrams: 12/17/17 03:56 12/17/17 03:56 Troponin/CKMB CK-MB (CK-2) 3.7 ng/mL (0-6.6) 12/14/17 21:16 Troponin I 0.047 ng/mL (< 0.028) H 12/15/17 04:06 - Assessment/Plan 1. Ind troponin, abnormal CONTINUING EDUCATION DIRECTOR-CONTINUING EDUCATION DIRECTOR revealed septal ischemia, plan for C Monday. Plan for HD today. No anginal symptoms. 2. HTN-echocardiogram revealed severe LVH, BP controlled, stable. 3. ESRD-on HD, M/W/F, managed by 4. Hyperkalemia-HD 12/15, K+ 5.4 (6.4 prior to HD) 5. Diastolic Dysfunction-appears euvolemic, no edema. BNP 75. 6. Ex smoker
[2017-12-17] MEDS ORDERED: Communication Order-Pharmacy FS SCH (16:15)
[2017-12-17] MEDS: Cefdinir 300 MG CAP PO SCH (20:54)
[2017-12-18] MEDS: Albuterol Sulfate 2.5 mg/3 ml Neb NEB PRN (02:26)
[2017-12-18] MEDS: PROVENTIL INHALER 6.7 G (200 INHALATIONS) INH SCH ×4 (02:28→14:22)
[2017-12-18 04:51] LABS: PTT 28.9 SEC (22.9-36.1); Prothrombin Time 13.5 SEC (12.0-14.7)
[2017-12-18 05:01] LABS: #Basophils 0.1 thou/uL (0.0-0.2); #Eosinphils 0.2 thou/uL (0.0-0.7); #Lymphocytes 3.2 thou/uL (1.20-3.40); #Monocytes 1.3 thou/uL (0.11-0.59); #Neutrophils 7.5 thou/uL (1.40-6.50); %Basophils 0.6 % (0.0-1.0); %Eosinophils 1.8 % (0.0-10.0); %Lymphocytes 25.9 % (21.0-51.0); %Monocytes 10.3 % (0.0-10.0); %Neutrophils 61.4 % (42.0-75.0); Hemoglobin 10.8 g/dL (14.0-18.0); Mean Corpuscular Hemoglobin 31.2 pg (27.0-31.0); Mean Corpuscular Volume 91.9 fL (78.0-98.0); Mean Platelet Volume 8.6 fL (7.4-10.4); Platelet Count 165 thou/uL (130-400); RBC Distribution Width 14.7 % (11.5-14.5); Red Blood Cell (RBC) Count 3.46 mill/uL (4.70-6.10); White Blood Cell (WBC) Count 12.2 thou/uL (4.8-10.8)
[2017-12-18 05:09] LABS: Albumin 3.3 g/dL (3.5-5.0); Anion Gap 15 mmol/L (10-20); BUN (Urea Nitrogen) 74 mg/dL (8.4-25.7); BUN/Creatinine Ratio 6.51; Calc. Creatinine Clearance 7 mL/min (70-130); Calcium 9.3 mg/dL (7.8-10.44); Carbon Dioxide 23 mmol/L (22-29); Chloride 105 mmol/L (98-107); Estimated GFR-MDRD 6; Glucose 82 mg/dL (70-105); Phosphorus 4.9 mg/dL (2.3-4.7); Potassium 4.8 mmol/L (3.5-5.1); Sodium 138 mmol/L (136-145)
[2017-12-18] MEDS ORDERED: Diazepam 5 MG TAB PO SCH (06:00)
[2017-12-18] MEDS: Nitroglycerin 2% Ointment 1 INCH/1 GM Packet TOP SCH ×2 (06:22→14:32)
[2017-12-18] MEDS: Carvedilol 6.25 MG TAB PO SCH (06:23)
[2017-12-18] MEDS: Aspirin 325 MG TAB PO SCH (06:23)
[2017-12-18] MEDS: Losartan 25 MG TAB PO SCH (06:24)
[2017-12-18] MEDS: Terazosin HCl 5 MG CAP PO SCH (06:24)
[2017-12-18] MEDS: guaiFENesin ER 600 MG TAB PO SCH (06:24)
--- NOTE | 2017-12-18 08:59 | ADD-PRG ---
ADDENDUM DATE OF SERVICE: 12/17/2017 I discussed with Mikey cardiac catheterization and the procedure. Discussed risks including stro ke, heart attack, loss of blood supply to the leg or kidney, stent thrombosis, stent restenosis. He understands and wishes to proceed and scheduled to be with Dr. Camacho tomorrow.
[2017-12-18] MEDS ORDERED: predniSONE 20 MG TAB PO SCH (09:00)
[2017-12-18] MEDS ORDERED: Lidocaine 1% (PF) 30 ML VIAL ONE ×2 (10:59→11:04)
[2017-12-18] MEDS ORDERED: Heparin 0 ML ONE (10:59)
--- NOTE | 2017-12-18 11:08 | PDOC.PN ---
- Subjective Encounter Start Date: 12/18/17 Encounter Start Time: 08:40 Patient seen and examined. No new complaints. No overnight events - Objective MAR Reviewed: Yes Vital Signs & Weight: Vital Signs (12 hours) Temp Pulse Resp BP Pulse Ox 12/18/17 08:59 98.0 F 73 16 166/91 H 94 L 12/18/17 08:01 73 20 95 12/18/17 04:14 98.2 F 72 14 148/83 H 91 L 12/18/17 02:26 71 12 94 L Weight Weight 148 lb 9.6 oz I&O: 12/17/17 12/18/17 12/19/17 06:59 06:59 06:59 Intake Total 480 720 Output Total 175 180 Balance 305 540 Result Diagrams: 12/18/17 04:32 12/18/17 04:32 EKG Reviewed by me: Yes (nsr) Phys Exam - Physical Examination Constitutional: NAD HEENT: PERRLA, moist MMs, sclera anicteric Neck: no JVD, supple Respiratory: no wheezing, no rales, no rhonchi Cardiovascular: RRR, no significant murmur, no rub Gastrointestinal: soft, non-tender, no distention, positive bowel sounds Musculoskeletal: no edema, pulses present Neurological: non-focal, normal sensation, moves all 4 limbs Lymphatic: no nodes Psychiatric: normal affect, A&O x 3 Skin: no rash, normal turgor Dx/Plan (1) Chest pain Code(s): R07.9 - CHEST PAIN, UNSPECIFIED Status: Acute (2) Elevated troponin Code(s): R74.8 - ABNORMAL LEVELS OF OTHER SERUM ENZYMES Status: Acute (3) Abnormal stress test Status: Acute (4) Hyperkalemia, diminished renal excretion Code(s): E87.5 - HYPERKALEMIA Status: Acute (5) Anemia of renal disease Code(s): D63.1 - ANEMIA IN CHRONIC KIDNEY DISEASE Status: Chronic (6) ESRD (end stage renal disease) on dialysis Code(s): N18.6 - END STAGE RENAL DISEASE; Z99.2 - DEPENDENCE ON RENAL DIALYSIS Status: Chronic (7) Ex-smoker Status: Chronic (8) Hypertension Code(s): I10 - ESSENTIAL (PRIMARY) HYPERTENSION Status: Chronic (9) Chronic diastolic (congestive) heart failure Code(s): I50.32 - CHRONIC DIASTOLIC (CONGESTIVE) HEART FAILURE Status: Chronic (10) LVH (left ventricular hypertrophy) due to hypertensive disease Code(s): I11.9 - HYPERTENSIVE HEART DISEASE WITHOUT HEART FAILURE Status: Chronic - Plan cont current plan of care * today plan for cardiac cath * based on cath result will decide if he can be discharged or not * medication reviewed as below * symptomatic treatment * HD as per nephrology * stable medically. Review of Systems - Review of Systems Eyes: negative: Pain, Vision Change, Conjunctivae Inflammation, Eyelid Inflammation, Redness, Other ENT: negative: Ear Pain, Ear Discharge, Nose Pain, Nose Discharge, Nose Congestion, Mouth Pain, Mouth Swelling, Throat Pain, Throat Swelling, Other Respiratory: negative: Cough, Dry, Shortness of Breath, Hemoptysis, SOB with Excertion, Pleuritic Pain, Sputum, Wheezing Cardiovascular: negative: chest pain, palpitations, orthopnea, paroxysmal nocturnal dyspnea, edema, light headedness, other Gastrointestinal: negative: Nausea, Vomiting, Abdominal Pain, Diarrhea, Constipation, Melena, Hematochezia, Other Genitourinary: negative: Dysuria, Frequency, Incontinence, Hematuria, Retention , Other Musculoskeletal: negative: Neck Pain, Shoulder Pain, Arm Pain, Back Pain, Hand Pain, Leg Pain, Foot Pain, Other Skin: negative: Rash, Lesions, Pablo, Bruising, Other - Medications/Allergies Allergies/Adverse Reactions: Allergies Allergy/AdvReac Type Severity Reaction Status Date / Time No Known Drug Allergies Allergy Verified 12/08/17 08:24 Medications: Current Medications Acetaminophen (Tylenol) 650 mg PO Q4H PRN PRN Reason: Headache/Fever or Pain Hydrocodone Bitart/Acetaminophen ([place] 5/325) 1 tab PO Q4H PRN PRN Reason: Moderate Pain (4-6) Al Hydroxide/Mg Hydroxide (Maalox) 30 ml PO Q6H PRN PRN Reason: Heartburn or Indigestion Albuterol Sulfate (Proventil Hfa) 2 puff INH [id number] SHADI Last Admin: 12/18/17 08:01 Dose: 2 puff Albuterol Sulfate (Ventolin) 2.5 mg NEB Q2H PRN PRN Reason: SOB/WHEEZE Last Admin: 12/18/17 02:26 Dose: 2.5 mg Artificial Tears (Tears Renewed 15ml Bottle) 0 drop EA EYE PRN PRN PRN Reason: Dry Eyes Aspirin (Aspirin) 325 mg PO DAILY [facility] Last Admin: 12/18/17 06:23 Dose: 325 mg Carvedilol (Coreg) 6.25 mg PO BID [facility] Last Admin: 12/18/17 06:23 Dose: 6.25 mg Cefdinir (Omnicef) 300 mg PO QPM [facility] Last Admin: 12/17/17 20:54 Dose: 300 mg Clonidine (Catapres) 0.1 mg PO Q4H PRN PRN Reason: Systolic BP > 180 Diazepam (Valium) 5 mg PO ONE [facility] Stop: 12/18/17 23:59 Guaifenesin (Robitussin Sf) 200 mg PO Q4H PRN PRN Reason: Cough Guaifenesin (Mucinex) 600 mg PO Q12HR [facility] Last Admin: 12/18/17 06:24 Dose: 600 mg Hydralazine HCl (Apresoline) 10 mg SLOW IVP Q4H PRN PRN Reason: Systolic BP > 180 Loperamide HCl (Imodium) 2 mg PO PRN PRN PRN Reason: Diarrhea/Loose Stools Loratadine (Claritin) 10 mg PO Q2DAYS@1700 [facility] Last Admin: 12/16/17 17:14 Dose: Not Given Losartan Potassium (Cozaar) 100 mg PO DAILY [facility] Last Admin: 12/18/17 06:24 Dose: 100 mg Magnesium Hydroxide (Milk Of Magnesium) 30 ml PO DAILYPRN PRN PRN Reason: Constipation Mineral Oil/White Petrolatum (Eucerin Cream) 0 gm TOP BIDPRN PRN PRN Reason: Dry Skin Miscellaneous Information (Communication Order-Pharmacy) 0 each FS ONE [facility] Stop: 12/18/17 23:59 Nitroglycerin (Nitrostat) 0.4 mg SL Q5MIN PRN PRN Reason: Chest Pain Nitroglycerin (Nitro-Bid 2% Ointment) 0.5 inch TOP Q8HR [facility] Last Admin: 12/18/17 06:22 Dose: Not Given Ondansetron HCl (Zofran Odt) 4 mg PO Q6H PRN PRN Reason: Nausea/Vomiting Ondansetron HCl (Zofran) 4 mg IVP Q6H PRN PRN Reason: Nausea/Vomiting Pantoprazole Sodium (Protonix) 40 mg PO DAILY [facility] Last Admin: 12/18/17 06:24 Dose: 40 mg Phenol (Chloraseptic [place] 180 Ml Bot) 0 ml PO PRN PRN PRN Reason: Sore Throat Prednisone (Prednisone) 10 mg PO QAM [facility] Stop: 12/21/17 09:01 Last Admin: 12/18/17 06:25 Dose: 10 mg Senna (Senokot) 2 tab PO HSPRN PRN PRN Reason: Constipation Sodium Chloride ([place] Nasal [place] 0.65%) 0 ml EA NARE QIDPRN PRN PRN Reason: Nasal Congestion Terazosin HCl (Hytrin) 5 mg PO BID [facility] Last Admin: 12/18/17 06:24 Dose: 5 mg Tramadol HCl (Ultram) 50 mg PO BID PRN PRN Reason: Pain Zolpidem Tartrate (Ambien) 5 mg PO HSPRN PRN PRN Reason: Insomnia
[2017-12-18] MEDS ORDERED: hydrALAZINE 20 MG/ML VIAL ONE (11:54)
[2017-12-18] MEDS ORDERED: Midazolam HCl 2 mg/2 ml Vial ONE (11:58)
[2017-12-18] MEDS ORDERED: Nitroglycerin 4.9 GM Bottle ONE (12:21)
[2017-12-18] MEDS ORDERED: Nitroglycerin 0.4 MG TAB (25 Tab Bottle) SL PRN (12:24)
[2017-12-18] MEDS ORDERED: traMADol HCl 50 MG TAB PO PRN (12:24)
[2017-12-18] MEDS ORDERED: Acetaminophen/Codeine 30-300mg Tablet PO PRN ×2 (12:24)
[2017-12-18] MEDS ORDERED: Sodium Chloride 0.9% 200 ML IV SCH (12:30)
--- NOTE | 2017-12-18 16:04 | DIS ---
DATE OF ADMISSION: 12/15/2017 DATE OF DISCHARGE: 12/18/2017 PRIMARY CARE PHYSICIAN: Kaylen Kramer. DISCHARGE DISPOSITION: Home. PRIMARY DISCHARGE DIAGNOSES: 1. Chest pain with elevated troponin. 2. Abnormal stress test. 3. Negative cardiac catheterization. SECONDARY DISCHARGE DIAGNOSES: End-stage renal disease, on hemodialysis; anemia of renal disease; ch ronic diastolic heart failure; hypertension; ex-smoker; left ventricular hypertrophy due to hypertens ilda heart disease. PRIMARY PROCEDURE/OPERATION: Cardiac catheterization was performed by Dr. Camacho and found with normal coronaries. Maintenance hemodialysis while in hospital. RADIOLOGICAL INVESTIGATION: Chest x-ray was normal. Stress test was abnormal with a septal ischemia . Echocardiography showed LVH with diastolic dysfunction. SIGNIFICANT LABORATORY DATA: WBC 12.2, hemoglobin 10.8, platelets 165. INR 1.0. Sodium 138, potass ium 4.8, BUN 74, creatinine 11.37, phosphorus 4.9, albumin 3.3. LDL 68. Troponin 0.047. DISCHARGE MEDICATIONS: The patient will continue all his previous medications. Tylenol #3 one table t b.i.d. p.r.n., Proventil 2 puffs q.4 hourly p.r.n., captopril 50 mg b.i.d., Coreg 6.25 mg p.o. b.i. d., Nephro-Patito 1 tablet p.o. daily, hydralazine 25 mg p.o. b.i.d., losartan 100 mg p.o. daily, minox danie 2.5 mg p.o. b.i.d., Protonix 40 mg p.o. daily, Hytrin 5 mg p.o. b.i.d., tramadol 50 mg p.o. b.i. d. p.r.n. The patient will finish his Omnicef and prednisone prescription, which was given during pr evious admission. CONTRAINDICATIONS: None. CODE STATUS: FULL CODE. INPATIENT CONSULTANTS: Dr. Angel and Dr. Camacho was following while in hospital. ALLERGIES: No known drug allergies. TEST RESULTS PENDING ON DISCHARGE: None. DISCHARGE PLAN: Post hospital, the patient will follow up with primary care physician. HOSPITAL COURSE: A 52-year-old -[place] male with above-mentioned medical problem, who was a dmitted by me on 12/14/2017. The patient presented with chest pain. His chest pain description was atypical for angina. He had elevated troponin. He had a negative EKG. Initially, we admitted to ob servation floor and we did serial cardiac enzyme. His troponin remained in indeterminant range. Sub sequently, patient underwent stress test that came back abnormal. Unfortunately, it was late Monday and the patient was not able to get cardiac catheterization and that is why he has to stay over week nd for cardiac catheterization. We changed his status to inpatient subsequently Monday, today. Mehreen ent underwent cardiac catheterization that came back unremarkable. The patient is currently asymptom atic, chest pain free. While in hospital, Dr. Kd Munoz was following for maintenance hemodialy sis. We did not make any change in his home medications. His leukocytosis was related with his rece nt use of prednisone from bronchitis. He will finish his bronchitis treatment, which was prescribed during previous admission. Rest of medications will be continued as per previous. The patient is ad vised to monitor potassium and he was given dietary education about low potassium diet. He will main tain his regular hemodialysis schedule. The patient is seen and examined at bedside today. Please see my progress note from today for furthe r details. The patient is medically stable for discharge today.
[2017-12-18] MEDS: Loratadine 10 MG TAB PO SCH (17:02)
[2017-12-18 18:25] VITALS: BP 127/81; TEMP 98
[2017-12-18] MEDS ORDERED: Iopamidol 370 76% 100 ML VIAL ONE (19:23)
== END 2017-12-18 18:42 | disposition home or self-care (01) | DRG 286 ==
LOC: ERS 13:37 → 2SW 15:31 → OBSVTOIN 12-15 14:22 → 2NO 12-15 20:03
PROVIDERS: ADMIT Internal Medicine; ATTEND Internal Medicine
PROC: 5A1D70Z Performance of Urinary Filtration, Intermittent, Less than 6 Hours Per Day (ICD-10-PCS; principal; 2017-12-15)
PROC: 4A023N7 Measurement of Cardiac Sampling and Pressure, Left Heart, Percutaneous Approach (ICD-10-PCS; 2017-12-18)
PROC: B2111ZZ Fluoroscopy of Multiple Coronary Arteries using Low Osmolar Contrast (ICD-10-PCS; 2017-12-18)
DX: R07.9 Chest pain, unspecified (principal); N18.6 End stage renal disease; I13.2 Hypertensive heart and chronic kidney disease with heart failure and with stage 5 chronic kidney disease, or end stage renal disease; I50.32 Chronic diastolic (congestive) heart failure; R94.39 Abnormal result of other cardiovascular function study; D63.1 Anemia in chronic kidney disease; R74.8 Abnormal levels of other serum enzymes; E87.5 Hyperkalemia; J44.9 Chronic obstructive pulmonary disease, unspecified; Z99.2 Dependence on renal dialysis; Z87.891 Personal history of nicotine dependence; Z79.52 Long term (current) use of systemic steroids
CPT/HCPCS: 36415; 36416; 71045; 78452; 80048; 80053; 80061; 80069; 82553; 83880; 84484; 85025; 85610; 85730; 93005; 93017; 93306; 93458; 93798; 94640; 99152; A4216; A9500; C1769; J0360; J1644; J2001; J2250; J2405; J2785; J7506; J7611

== ENCOUNTER 2018-06-05 17:22 | Inpatient (IN) | payer MEDICARE, MEDICAID ==
[2018-06-05] MEDS ORDERED: Ibuprofen 800 MG TAB ONE (17:38)
[2018-06-05 18:00] LABS: Hemoglobin 10.4 g/dL (14.0-18.0); Mean Corpuscular HGB CONC 32.8 g/dL (32.0-36.0); Mean Corpuscular Hemoglobin 30.1 pg (27.0-31.0); Mean Corpuscular Volume 91.8 fL (78.0-98.0); RBC Distribution Width 14.5 % (11.5-14.5); Red Blood Cell (RBC) Count 3.45 mill/uL (4.70-6.10); White Blood Cell (WBC) Count 16.2 thou/uL (4.8-10.8)
[2018-06-05 18:19] LABS: ALT (SGPT) Less than 7 U/L (8-55); AST (SGOT) 11 U/L (5-34); Albumin 3.9 g/dL (3.5-5.0); Alkaline Phosphatase 73 U/L (40-150); Anion Gap 17 mmol/L (10-20); BUN (Urea Nitrogen) 38 mg/dL (8.4-25.7); Bilirubin, Total 0.6 mg/dL (0.2-1.2); Calc. Creatinine Clearance 0 mL/min (70-130); Calcium 9.9 mg/dL (7.8-10.44); Carbon Dioxide 21 mmol/L (22-29); Chloride 101 mmol/L (98-107); Estimated GFR-MDRD 7; Globulin 3.5 g/dL (2.4-3.5); Glucose 100 mg/dL (70-105); Potassium 4.6 mmol/L (3.5-5.1); Protein, Total 7.4 g/dL (6.0-8.3); Sodium 134 mmol/L (136-145)
[2018-06-05 18:20] LABS: Anisocytosis SLIGHT = 6-15 cells (100X) (0-5/hpf); Band 3 % (5-11); Hypochromia SLIGHT = 6-15 cells (100X) (0-5/hpf); Lymphocytes 3 % (21-51); MDiff Complete? YES; Mean Platelet Volume 10.1 fL (7.4-10.4); Monocytes 3 % (0-10); Neutrophil 91 % (42-75); Platelet Count 105 thou/uL (130-400); Platelet Morphology Comment Appears Decreased
--- NOTE | 2018-06-05 19:57 | RAD ---
PORTABLE CHEST: 06/05/2018 PROVIDED CLINICAL HISTORY: Fever. COMPARISON: 12/14/2017 FINDINGS: The cardiac and mediastinal silhouette is within normal limits. Left upper extremity vascular stent material extending into the left chest is again seen. Emphysematous changes are again noted. Right IJ dialysis catheter is noted, with tips in the region of the expected location of the SVC. No focal consolidation, pleural fluid, or pneumothorax apparent. IMPRESSION: No evidence for an acute cardiopulmonary process. POS: SASHA
[2018-06-05] MEDS ORDERED: Senokot S 8.6-50 MG TAB PO PRN (21:57)
[2018-06-05] MEDS ORDERED: Acetaminophen 325 MG TAB PO PRN (21:57)
[2018-06-05] MEDS ORDERED: Acetaminophen 650 MG Suppository PR PRN (21:57)
[2018-06-05] MEDS ORDERED: Zolpidem Tartrate 5 MG TAB PO PRN (21:57)
[2018-06-05] MEDS ORDERED: Ondansetron ODT 4 MG TAB PO PRN (21:57)
[2018-06-05] MEDS ORDERED: Guaifenesin DM 100-10/5 ML UDCUP PO PRN (21:57)
[2018-06-05] MEDS ORDERED: Bisacodyl 5 MG TAB PO PRN (21:57)
[2018-06-05] MEDS ORDERED: Acetaminophen/Codeine 30-300mg Tablet PO PRN (22:02)
[2018-06-05] MEDS ORDERED: traMADol HCl 50 MG TAB PO PRN (22:02)
[2018-06-05] MEDS ORDERED: Vancomycin HCl 1.5 GM in Sodium Chloride 0.9% 250 ML 300 ML IVPB SCH (22:30)
[2018-06-05] MEDS ORDERED: HOLD VANCOMYCIN FOR LEVEL >20 FS SCH (23:15)
[2018-06-05] MEDS ORDERED: Vancomycin HCl 250 MG in Sodium Chloride 0.9% 100 ML IVPB SCH (23:15)
[2018-06-05] MEDS ORDERED: Vancomycin HCl 750 MG in Sodium Chloride 0.9% 250 ML 250 ML IVPB SCH (23:15)
[2018-06-05] MEDS ORDERED: Vancomycin HCl 1 GM in Premix Bag 1 BAG IVPB SCH (23:15)
[2018-06-05] MEDS ORDERED: Vancomycin HCl 500 MG in Sodium Chloride 0.9% 100 ML IVPB SCH (23:15)
[2018-06-05] MEDS ORDERED: Piperacillin/Tazobactam 3.375 GM in Sodium Chloride 0.9% 100 ML IVPB SCH (23:59)
[2018-06-06 04:19] LABS: Anion Gap 17 mmol/L (10-20); BUN (Urea Nitrogen) 55 mg/dL (8.4-25.7); Calc. Creatinine Clearance 0 mL/min (70-130); Carbon Dioxide 22 mmol/L (22-29); Chloride 102 mmol/L (98-107); Estimated GFR-MDRD 5; Glucose 94 mg/dL (70-105); Potassium 5.8 mmol/L (3.5-5.1); Sodium 135 mmol/L (136-145)
[2018-06-06 04:30] LABS: #Lymphocytes 1.9 thou/uL (1.20-3.40); #Monocytes 1.9 thou/uL (0.11-0.59); #Neutrophils 12.8 thou/uL (1.40-6.50); %Basophils 0.3 % (0.0-1.0); %Eosinophils 0.2 % (0.0-10.0); %Lymphocytes 11.5 % (21.0-51.0); %Monocytes 11.5 % (0.0-10.0); %Neutrophils 76.5 % (42.0-75.0); Hemoglobin 9.4 g/dL (14.0-18.0); Mean Corpuscular HGB CONC 32.4 g/dL (32.0-36.0); Mean Corpuscular Volume 92.6 fL (78.0-98.0); Mean Platelet Volume 9.5 fL (7.4-10.4); Platelet Count 105 thou/uL (130-400); RBC Distribution Width 14.2 % (11.5-14.5); Red Blood Cell (RBC) Count 3.13 mill/uL (4.70-6.10); White Blood Cell (WBC) Count 16.7 thou/uL (4.8-10.8)
--- NOTE | 2018-06-06 09:50 | HP ---
CHIEF COMPLAINT: Dizziness and shortness of breath. HISTORY OF PRESENT ILLNESS: This is a 53-year-old male with past medical history of renal failure, on dialysis, Mondays, Wednesdays, and Fridays, and hypertension, presenting with shortness of breath and dizziness during dialysis. Per the patient, on the day of dialysis, he started having severe shortness of breath, became febrile and dizzy. Due to the fact that the patient was having these symptoms, the patient was advised to come to our facility to be further evaluated to make sure the patient's fistula was not infected. Per the patient, he recently saw his plate and frame filter operator, Dr. Blount. The patient also had a recent bronchitis, which was being treated for a couple of months. At this time, the patient denies dizziness, headaches, chest pain, palpitations, nausea, vomiting, abdominal pain, dysuria, hematuria, hematochezia, or melena. REVIEW OF SYSTEMS: Positive for fever, shortness of breath and dizziness. Otherwise, all other systems were reviewed and are negative. PAST MEDICAL HISTORY: Renal failure, on dialysis, Mondays, Wednesdays, and Fridays and hypertension. PAST SURGICAL HISTORY: The patient has a left upper arm dialysis fistula and a right upper chest dialysis port. PSYCHIATRIC HISTORY: No previous psych history. SOCIAL HISTORY: The patient denies any alcohol use. Denies any illicit drugs. The patient is a former tobacco smoker. The patient used to smoke cigarettes and quit 6 months ago. ALLERGIES: NO KNOWN DRUG ALLERGIES. CURRENT MEDICATIONS: 1. The patient takes apresoline. 2. The patient takes Capoten. 3. The patient takes Coreg, hydrocodone, acetaminophen. 4. The patient takes minoxidil. 5. The patient takes tramadol and Combivent. PHYSICAL EXAMINATION: VITAL SIGNS: The patient's blood pressure is 121/74, pulse is 134, respiratory rate of 24, temperature of 102.7, and O2 saturation 99% on 2 L. GENERAL: The patient is lying in bed, sleeping. The patient is alert and oriented x3, not in acute distress. The patient is able to speak to me in full sentences. HEENT: Normocephalic, atraumatic. Pupils are equally round and reactive to light. Extraocular movements are intact. No scleral icterus. No conjunctival pallor. Mucous membranes are moist. NECK: Trachea is midline. Full range of motion. No JVD noted. LUNGS: Clear to auscultation bilaterally. No wheezing, no rales, no rhonchi appreciated. The patient has a right upper chest dialysis port noted. CARDIAC: Positive S1 and S2. Tachycardic. No murmurs appreciated. ABDOMEN: Soft, nontender, and nondistended. Positive bowel sounds in all quadrants. EXTREMITIES: The patient does have a left upper arm AV fistula with a palpable thrill. There is no edema noted at the upper extremity. There are good pulses bilaterally at the upper extremity. At the lower extremities, the patient has 5/5 lower extremities with no edema noted and good dorsalis pedis pulses bilaterally. NEUROLOGIC: Cranial nerves 2 through 12 grossly intact. No neurologic deficits noted. PSYCH: Normal affect. Alert and oriented x3. SKIN: Warm, dry, and intact. Refer to the upper extremities for description. LABORATORY DATA: Today, WBC 16.2, hemoglobin is 10.4, hematocrit is 31.7, and platelet count is 105. Chemistry: Sodium is 134, potassium is 4.6, chloride is 101, carbon dioxide of 21, anion gap of 17, BUN is 38, creatinine is 9.56, glucose is 100, lactic acid is 1.6. AST is 11, ALT is less than 7. ASSESSMENT AND PLAN: 1. This is a 53-year-old male, on hemodialysis, Mondays, Wednesdays, and Fridays, being admitted for sepsis, likely secondary to possible AV fistula infection or bacteremia. At this point, the patient has been started on vancomycin and Zosyn. We will continue the patient on broad-spectrum antibiotics. We will continue to follow the patient closely. We will give p.r.n. medications for fevers and pain. 2. History of hypertension. We will monitor the patient's blood pressure closely and we will treat accordingly. 3. End-stage renal disease, on hemodialysis, Mondays, Wednesdays and Fridays. We have consulted the patient's plate and frame filter operator. We will continue to monitor the patient closely and we will give the patient dialysis while the patient is in the hospital. 4. Electrolyte abnormalities, likely due to the patient having end-stage renal disease. At this point, the patient is on dialysis. We will continue the patient on dialysis. 5. Deep venous thrombosis and gastrointestinal prophylaxis addressed. Job ID: [id number]
[2018-06-06] MEDS ORDERED: Piperacillin/Tazobactam 2.25 GM VIAL ONE (10:56)
[2018-06-06] MEDS: Famotidine 20 MG TAB PO SCH (11:03)
[2018-06-06] MEDS: Folic Acid/Vit B Comp W-C PO SCH (11:04)
[2018-06-06] MEDS: Minoxidil 2.5 MG TAB PO SCH (11:07)
[2018-06-06] MEDS: hydrALAZINE 25 MG TAB PO SCH (11:07)
[2018-06-06] MEDS: Carvedilol 6.25 MG TAB PO SCH ×2 (11:07→20:43)
[2018-06-06] MEDS: Heparin 5,000 UNITS/ML VIAL SC SCH ×2 (11:08→20:34)
[2018-06-06 12:32] LABS: HBSAg Index 0.21 S/CO (0-0.99); Hep B Surf Ag Non-Reactive S/CO (NonReactive)
[2018-06-06] MEDS: Piperacillin/Tazobactam 2.25 GM in Sodium Chloride 0.9% 100 ML IVPB SCH (12:57)
[2018-06-06] MEDS: Terazosin HCl 5 MG CAP PO SCH ×2 (12:58→20:33)
[2018-06-06 14:02] LABS: Vancomycin, Random 36.3 ug/mL (See Comment)
--- NOTE | 2018-06-06 16:10 | PDOC.EVN ---
Event Note - Event Note Event Note: Pt seen for followup re: sepsis. Feels better. No complaints. VSS. Will follow. Pt receiving antibiotics for sepsis.
--- NOTE | 2018-06-06 16:15 | PDOC.PN ---
- Subjective Encounter Start Date: 06/06/18 Encounter Start Time: 11:00 Pt seen for followup re: sepsis. Denies chest pain. Had fever yesterday. - Objective Resuscitation Status - Order Detail: 06/05/18 21:57 Resuscitation Status Routine Resuscitation Status: FULL: Full Resuscitation MAR Reviewed: Yes Vital Signs & Weight: Vital Signs (12 hours) Pulse 06/06/18 11:07 73 06/06/18 11:04 73 I&O: 06/05/18 06/06/18 06/07/18 06:59 06:59 06:59 Intake Total 400 Balance 400 Result Diagrams: 06/06/18 03:43 06/06/18 03:43 Additional Labs: Accuchecks 06/05/18 19:23 POC Glucose 159 H EKG Reviewed by me: Yes (Tele: NSR) Phys Exam - Physical Examination Constitutional: NAD HEENT: moist MMs, sclera anicteric, oral pharynx no lesions, 2+ tonsils Neck: no nodes, no JVD, supple, full ROM Respiratory: no wheezing, no rales, no rhonchi, clear to auscultation bilateral Cardiovascular: RRR, no rub S1, S2; LUE AV fistula Gastrointestinal: soft, non-tender, no distention, positive bowel sounds Musculoskeletal: no edema Neurological: moves all 4 limbs Psychiatric: normal affect, A&O x 3 Dx/Plan (1) Sepsis Code(s): A41.9 - SEPSIS, UNSPECIFIED ORGANISM Status: Acute Comment: continue IV antibiotics as below, await cultures (2) Chronic diastolic (congestive) heart failure Code(s): I50.32 - CHRONIC DIASTOLIC (CONGESTIVE) HEART FAILURE Status: Chronic Comment: stable (3) ESRD (end stage renal disease) on dialysis Code(s): N18.6 - END STAGE RENAL DISEASE; Z99.2 - DEPENDENCE ON RENAL DIALYSIS Status: Chronic Comment: dialysis per nephrology service (4) Hypertension Code(s): I10 - ESSENTIAL (PRIMARY) HYPERTENSION Status: Chronic Comment: controlled - Plan * . Review of Systems - Review of Systems Constitutional: fever. negative: chills, sweats, weakness, malaise Respiratory: negative: Cough, Shortness of Breath, SOB with Excertion, Pleuritic Pain, Wheezing Cardiovascular: negative: chest pain, palpitations, orthopnea, paroxysmal nocturnal dyspnea, edema, light headedness Gastrointestinal: negative: Nausea, Vomiting, Abdominal Pain, Diarrhea, Constipation, Melena, Hematochezia Genitourinary: negative: Dysuria, Frequency, Incontinence, Hematuria, Retention Skin: negative: Rash, Lesions, Pablo, Bruising - Medications/Allergies Allergies/Adverse Reactions: Allergies Allergy/AdvReac Type Severity Reaction Status Date / Time No Known Drug Allergies Allergy Verified 12/08/17 08:24 Medications: Current Medications Acetaminophen (Tylenol) 650 mg PO Q4H PRN PRN Reason: Headache/Fever/Mild Pain (1-3) Acetaminophen (Tylenol) 650 mg [place] Q4H PRN PRN Reason: Headache/Fever/Mild Pain (1-3) Acetaminophen/Codeine Phosphate (Tylenol #3) 1 tab PO BIDPRN PRN PRN Reason: Moderate Pain (4-6) Bisacodyl (Dulcolax) 10 mg PO DAILYPRN PRN PRN Reason: Constipation Captopril (Capoten) 50 mg PO BID [facility] Last Admin: 06/06/18 11:04 Dose: 50 mg Carvedilol (Coreg) 6.25 mg PO BID[facility] Last Admin: 06/06/18 11:07 Dose: 6.25 mg Famotidine (Pepcid) 20 mg SLOW IVP DAILY [facility] Famotidine (Pepcid) 20 mg PO DAILY [facility] Last Admin: 06/06/18 11:03 Dose: 20 mg Guaifenesin/Dextromethorphan (Robitussin Dm) 15 ml PO Q4H PRN PRN Reason: Cough Heparin Sodium (Porcine) (Heparin) 5,000 units SC BID [facility] Last Admin: 06/06/18 11:08 Dose: 5,000 units Hydralazine HCl (Apresoline) 25 mg PO BID [facility] Last Admin: 06/06/18 11:07 Dose: 25 mg Piperacillin Sod/Tazobactam (Sod 2.25 gm/ Sodium Chloride) 100 mls @ 200 mls/ hr IVPB 1200,2359 [facility] Last Admin: 06/06/18 12:57 Dose: 100 mls Vancomycin HCl 1 gm/ Device 200 mls @ 200 mls/hr IVPB [facility] Vancomycin HCl 750 mg/ Sodium (Chloride) 250 mls @ 250 mls/hr IVPB [facility] Vancomycin HCl 500 mg/ Sodium (Chloride) 100 mls @ 100 mls/hr IVPB [facility] Vancomycin HCl 250 mg/ Sodium (Chloride) 100 mls @ 100 mls/hr IVPB [facility] Minoxidil (Minoxidil) 2.5 mg PO BID [facility] Last Admin: 06/06/18 11:07 Dose: 2.5 mg Miscellaneous Medication (Pharmacy To Dose) 1 each IVPB PRN PRN PRN Reason: INFECTED SHUNT Hold Vancomycin For (Level >20) 0 each FS .AT DIALYSIS [facility] Ondansetron HCl (Zofran Odt) 4 mg PO Q6H PRN PRN Reason: Nausea/Vomiting Pantoprazole Sodium (Protonix) 40 mg PO DAILY [facility] Last Admin: 06/06/18 11:07 Dose: 40 mg Senna/Docusate Sodium (Senokot S) 2 tab PO BIDPRN PRN PRN Reason: Constipation Sodium Chloride (Flush - Normal Saline) 10 ml IVF Q12HR PRN PRN Reason: Saline Flush Sodium Chloride (Flush - Normal Saline) 10 ml IVF PRN PRN PRN Reason: Saline Flush Terazosin HCl (Hytrin) 5 mg PO BID [facility] Last Admin: 06/06/18 12:58 Dose: 5 mg Tramadol HCl (Ultram) 50 mg PO Q12H PRN PRN Reason: Severe Pain (7-10) Vitamin B Complex/Vit C/Folic Acid (Nephro-Patito Tablet) 1 tab PO DAILY [facility] Last Admin: 06/06/18 11:04 Dose: 1 tab Zolpidem Tartrate (Ambien) 5 mg PO HSPRN PRN PRN Reason: Insomnia
[2018-06-06] MEDS: Famotidine/PF 20 mg/2ml Vial SLOW IVP SCH (16:52)
[2018-06-07] MEDS: Terazosin HCl 5 MG CAP PO SCH ×3 (00:56→20:35)
[2018-06-07] MEDS: hydrALAZINE 25 MG TAB PO SCH ×3 (00:56→20:35)
[2018-06-07] MEDS: Minoxidil 2.5 MG TAB PO SCH ×3 (00:56→20:35)
[2018-06-07] MEDS: Piperacillin/Tazobactam 2.25 GM in Sodium Chloride 0.9% 100 ML IVPB SCH ×2 (01:04→11:31)
[2018-06-07] MEDS: Carvedilol 6.25 MG TAB PO SCH ×2 (08:33→16:39)
[2018-06-07] MEDS: Folic Acid/Vit B Comp W-C PO SCH (08:34)
[2018-06-07] MEDS: Famotidine/PF 20 mg/2ml Vial SLOW IVP SCH (08:34)
[2018-06-07] MEDS: Heparin 5,000 UNITS/ML VIAL SC SCH ×2 (08:35→20:34)
[2018-06-07] MEDS: Famotidine 20 MG TAB PO SCH (08:36)
[2018-06-07 08:58] LABS: #Basophils 0.1 thou/uL (0.0-0.2); #Eosinphils 0.2 thou/uL (0.0-0.7); #Lymphocytes 1.3 thou/uL (1.20-3.40); #Monocytes 0.9 thou/uL (0.11-0.59); #Neutrophils 7.5 thou/uL (1.40-6.50); %Eosinophils 2.4 % (0.0-10.0); %Lymphocytes 13.3 % (21.0-51.0); %Monocytes 8.5 % (0.0-10.0); %Neutrophils 74.8 % (42.0-75.0); Hemoglobin 10.7 g/dL (14.0-18.0); Mean Corpuscular HGB CONC 32.5 g/dL (32.0-36.0); Mean Corpuscular Volume 92.2 fL (78.0-98.0); Mean Platelet Volume 10.1 fL (7.4-10.4); Platelet Count 133 thou/uL (130-400); RBC Distribution Width 14.4 % (11.5-14.5); Red Blood Cell (RBC) Count 3.57 mill/uL (4.70-6.10)
[2018-06-07 09:13] LABS: Anion Gap 17 mmol/L (10-20); BUN (Urea Nitrogen) 41 mg/dL (8.4-25.7); Calc. Creatinine Clearance 9 mL/min (70-130); Calcium 10.8 mg/dL (7.8-10.44); Carbon Dioxide 22 mmol/L (22-29); Chloride 102 mmol/L (98-107); Estimated GFR-MDRD 7; Glucose 140 mg/dL (70-105); Potassium 5.3 mmol/L (3.5-5.1); Sodium 136 mmol/L (136-145)
--- NOTE | 2018-06-07 17:12 | PDOC.PN ---
- Subjective Encounter Start Date: 06/07/18 Encounter Start Time: 08:00 Pt seen for followup re: sepsis. Denies chets pain, shortness of breath, fevers or chills. - Objective Resuscitation Status - Order Detail: 06/05/18 21:57 Resuscitation Status Routine Resuscitation Status: FULL: Full Resuscitation MAR Reviewed: Yes Vital Signs & Weight: Vital Signs (12 hours) Temp Pulse Resp BP BP Pulse Ox 06/07/18 16:38 98.1 F 72 16 105/65 93 L 06/07/18 11:36 98.1 F 79 18 92/56 L 98 06/07/18 08:41 97.9 F 77 18 118/59 L 86 L Weight Weight 162 lb 2 oz I&O: 06/06/18 06/07/18 06/08/18 06:59 06:59 06:59 Intake Total 400 300 Output Total 0 Balance 400 300 Result Diagrams: 06/07/18 08:39 06/07/18 08:39 EKG Reviewed by me: Yes (Tele: NSR) Phys Exam - Physical Examination Constitutional: NAD HEENT: moist MMs, sclera anicteric, oral pharynx no lesions, 2+ tonsils Neck: no nodes, no JVD, supple, full ROM Respiratory: clear to auscultation bilateral Cardiovascular: RRR, no rub S1, S2; LUE AV fistula Gastrointestinal: soft, non-tender, no distention, positive bowel sounds Neurological: moves all 4 limbs Psychiatric: normal affect, A&O x 3 Dx/Plan (1) Sepsis Code(s): A41.9 - SEPSIS, UNSPECIFIED ORGANISM Status: Acute Comment: continue IV Zosyn and vancomycin, await cultures (2) Chronic diastolic (congestive) heart failure Code(s): I50.32 - CHRONIC DIASTOLIC (CONGESTIVE) HEART FAILURE Status: Chronic Comment: stable (3) ESRD (end stage renal disease) on dialysis Code(s): N18.6 - END STAGE RENAL DISEASE; Z99.2 - DEPENDENCE ON RENAL DIALYSIS Status: Chronic Comment: nephrology service following (4) Hypertension Code(s): I10 - ESSENTIAL (PRIMARY) HYPERTENSION Status: Chronic Comment: controlled - Plan * . Review of Systems - Review of Systems Constitutional: negative: fever, chills, sweats, weakness, malaise Respiratory: negative: Cough, Shortness of Breath, SOB with Excertion, Pleuritic Pain, Wheezing Cardiovascular: negative: chest pain, palpitations, orthopnea, paroxysmal nocturnal dyspnea, edema, light headedness Gastrointestinal: negative: Nausea, Vomiting, Abdominal Pain, Diarrhea, Constipation, Melena, Hematochezia Genitourinary: negative: Dysuria, Frequency, Incontinence, Hematuria, Retention Skin: negative: Rash, Lesions, Pablo, Bruising - Medications/Allergies Allergies/Adverse Reactions: Allergies Allergy/AdvReac Type Severity Reaction Status Date / Time No Known Drug Allergies Allergy Verified 12/08/17 08:24 Medications: Current Medications Acetaminophen (Tylenol) 650 mg PO Q4H PRN PRN Reason: Headache/Fever/Mild Pain (1-3) Last Admin: 06/07/18 08:34 Dose: 650 mg Acetaminophen (Tylenol) 650 mg [place] Q4H PRN PRN Reason: Headache/Fever/Mild Pain (1-3) Acetaminophen/Codeine Phosphate (Tylenol #3) 1 tab PO BIDPRN PRN PRN Reason: Moderate Pain (4-6) Bisacodyl (Dulcolax) 10 mg PO DAILYPRN PRN PRN Reason: Constipation Captopril (Capoten) 50 mg PO BID [facility] Last Admin: 06/07/18 08:46 Dose: 50 mg Carvedilol (Coreg) 6.25 mg PO BID-[facility] Last Admin: 06/07/18 16:39 Dose: 6.25 mg Famotidine (Pepcid) 20 mg SLOW IVP DAILY [facility] Last Admin: 06/07/18 08:34 Dose: Not Given Famotidine (Pepcid) 20 mg PO DAILY [facility] Last Admin: 06/07/18 08:36 Dose: Not Given Guaifenesin/Dextromethorphan (Robitussin Dm) 15 ml PO Q4H PRN PRN Reason: Cough Heparin Sodium (Porcine) (Heparin) 5,000 units SC BID [facility] Last Admin: 06/07/18 08:35 Dose: Not Given Hydralazine HCl (Apresoline) 25 mg PO BID [facility] Last Admin: 06/07/18 08:34 Dose: 25 mg Piperacillin Sod/Tazobactam (Sod 2.25 gm/ Sodium Chloride) 100 mls @ 200 mls/ hr IVPB 1200,2359 [facility] Last Admin: 06/07/18 11:31 Dose: 100 mls Vancomycin HCl 1 gm/ Device 200 mls @ 200 mls/hr IVPB [facility] Vancomycin HCl 750 mg/ Sodium (Chloride) 250 mls @ 250 mls/hr IVPB [facility] Vancomycin HCl 500 mg/ Sodium (Chloride) 100 mls @ 100 mls/hr IVPB [facility] Vancomycin HCl 250 mg/ Sodium (Chloride) 100 mls @ 100 mls/hr IVPB [facility] Minoxidil (Minoxidil) 2.5 mg PO BID [facility] Last Admin: 06/07/18 08:36 Dose: 2.5 mg Miscellaneous Medication (Pharmacy To Dose) 1 each IVPB PRN PRN PRN Reason: INFECTED SHUNT Hold Vancomycin For (Level >20) 0 each FS .AT DIALYSIS [facility] Ondansetron HCl (Zofran Odt) 4 mg PO Q6H PRN PRN Reason: Nausea/Vomiting Pantoprazole Sodium (Protonix) 40 mg PO DAILY [facility] Last Admin: 06/07/18 08:31 Dose: Not Given Senna/Docusate Sodium (Senokot S) 2 tab PO BIDPRN PRN PRN Reason: Constipation Sodium Chloride (Flush - Normal Saline) 10 ml IVF Q12HR PRN PRN Reason: Saline Flush Sodium Chloride (Flush - Normal Saline) 10 ml IVF PRN PRN PRN Reason: Saline Flush Terazosin HCl (Hytrin) 5 mg PO BID [facility] Last Admin: 06/07/18 08:37 Dose: 5 mg Tramadol HCl (Ultram) 50 mg PO Q12H PRN PRN Reason: Severe Pain (7-10) Vitamin B Complex/Vit C/Folic Acid (Nephro-Patito Tablet) 1 tab PO DAILY [facility] Last Admin: 06/07/18 08:34 Dose: 1 tab Zolpidem Tartrate (Ambien) 5 mg PO HSPRN PRN PRN Reason: Insomnia
--- NOTE | 2018-06-07 22:01 | CON ---
DATE OF CONSULTATION: REASON FOR CONSULTATION: Dyspnea, fever, and end-stage renal disease. HISTORY OF PRESENT ILLNESS: A 53-year-old who has 3-year history of hemodialysis for end-stage renal disease secondary to hypertension or to possible undiagnosed form of chronic renal insufficiency, who presents with episode of fever. The patient has had problems with his access in the left upper extremity and required extensive intervention by Dr. Blount and trying to reestablish the patency of the left upper extremity AV fistula. Because that failed, he ended up needing placement of a tunneled catheter in the right IJ position, which was done just [address] Blount, developed dizziness, dyspnea, and some fever and was admitted. BP was 120/70, pulse 134, respirations 24, and temperature 102.7. The lungs were clear. The abdomen was normal. The left upper extremity AV fistula did not have any tenderness. The right tunneled IJ catheter for dialysis did not have any inflammatory changes either. Currently, Mr. Jensen is sitting in bed, he is feeling back to normal. No headaches. No visual symptoms, sore throat, odynophagia, or dysphagia. No back pain. No cough, sputum productive, or chest pain. No abdominal pain or diarrhea. No genitourinary symptoms, still has some urinary output. PAST MEDICAL HISTORY: Includes end-stage renal disease, reportedly secondary to hypertension, but could be secondary to some form of undiagnosed chronic glomerulonephritis. Left upper extremity dialysis fistula with lack of patency due to clotting. Right upper chest dialysis catheter recently placed just 2 days before admission. SOCIAL HISTORY: Former smoker and no drug use. Lives in [place]. ALLERGIES: NONE. CURRENT MEDICATIONS: P.r.n. medications: 1. Capoten. 2. Coreg. 3. Pepcid. 4. Robitussin. 5. Heparin. 6. Apresoline. 7. Minoxidil. 8. Vancomycin. 9. Sliding scale. 10. Zosyn. PHYSICAL EXAMINATION: VITAL SIGNS: Temperature max 99.8; blood pressure 90/50, pulse 79, respirations 18, and O2 saturation 98%. SKIN: Left AV fistula without tenderness. It appears to be thrombosed. No erythema. Right tunneled hemodialysis catheter appears normal. HEENT: No lymphadenopathy. Ocular movements conjugate. Oral cavity is normal. NECK: Supple. LUNGS: Symmetric. Clear breath sounds. HEART: S1 and S2. Regular rate without murmurs. ABDOMEN: Soft, not distended or tender. No ascites. No bladder distention. EXTREMITIES: No joint inflammatory activity. Moves extremities equally. Cognitive function appears to be intact. LABORATORY DATA: White cell count 16,000, down to 10; hemoglobin 10.4; platelets 133, which is up from admission, 74% neutrophils and chemistry. Liver profile normal. Albumin 3.9, creatinine 9.98. Serology, hepatitis surface antigen negative. Microbiology, 2 sets of blood cultures, thus far no growth at 48 hours. IMAGING STUDIES: Include a chest x-ray with no acute cardiopulmonary process. ASSESSMENT: 1. Chronic renal insufficiency of uncertain etiology, on hemodialysis. 2. Access problem due to clotting of the left arteriovenous fistula in the left upper extremity. 3. Establishment of access through a right tunneled IJ catheter. 4. Fever. DISCUSSION: Differential diagnosis includes transient bacteremia versus a more persistent form of bacteremia as the most likely scenario of viral infections including influenza need to be ruled out. Continue antimicrobial therapy. Wait on the blood culture results and submit influenza, respiratory virus and PCR panel. If the blood cultures return positive, then we will target whatever organism is retrieved and further workup to depend on a nature of the organism. If they remain negative, then continue vancomycin sliding scale for another 2 weeks and then stop it. Job ID: [id number]
[2018-06-08] MEDS: Piperacillin/Tazobactam 2.25 GM in Sodium Chloride 0.9% 100 ML IVPB SCH ×3 (00:15→23:44)
[2018-06-08 06:29] LABS: #Basophils 0.1 thou/uL (0.0-0.2); #Eosinphils 0.6 thou/uL (0.0-0.7); #Lymphocytes 1.6 thou/uL (1.20-3.40); #Monocytes 0.9 thou/uL (0.11-0.59); #Neutrophils 5.2 thou/uL (1.40-6.50); %Basophils 0.9 % (0.0-1.0); %Eosinophils 6.7 % (0.0-10.0); %Monocytes 10.8 % (0.0-10.0); %Neutrophils 62.5 % (42.0-75.0); Mean Corpuscular HGB CONC 32.9 g/dL (32.0-36.0); Mean Corpuscular Hemoglobin 30.1 pg (27.0-31.0); Mean Corpuscular Volume 91.5 fL (78.0-98.0); Mean Platelet Volume 9.2 fL (7.4-10.4); Platelet Count 160 thou/uL (130-400); RBC Distribution Width 14.3 % (11.5-14.5); Red Blood Cell (RBC) Count 3.32 mill/uL (4.70-6.10); White Blood Cell (WBC) Count 8.3 thou/uL (4.8-10.8)
[2018-06-08 06:46] LABS: Anion Gap 17 mmol/L (10-20); BUN (Urea Nitrogen) 59 mg/dL (8.4-25.7); Calc. Creatinine Clearance 7 mL/min (70-130); Calcium 10.6 mg/dL (7.8-10.44); Carbon Dioxide 24 mmol/L (22-29); Chloride 103 mmol/L (98-107); Estimated GFR-MDRD 5; Glucose 85 mg/dL (70-105); Potassium 5.8 mmol/L (3.5-5.1); Sodium 138 mmol/L (136-145)
[2018-06-08 08:18] LABS: Vancomycin, Random 22.5 ug/mL (See Comment)
[2018-06-08] MEDS ORDERED: Heparin 1,000 UNITS/ML VIAL ONE (11:11)
[2018-06-08] MEDS: Famotidine/PF 20 mg/2ml Vial SLOW IVP SCH (12:11)
[2018-06-08] MEDS: Carvedilol 6.25 MG TAB PO SCH ×2 (12:20→16:46)
[2018-06-08] MEDS: Minoxidil 2.5 MG TAB PO SCH ×2 (12:21→20:21)
[2018-06-08] MEDS: hydrALAZINE 25 MG TAB PO SCH ×2 (12:21→20:20)
[2018-06-08] MEDS: Terazosin HCl 5 MG CAP PO SCH ×2 (12:22→20:20)
[2018-06-08] MEDS: Heparin 5,000 UNITS/ML VIAL SC SCH ×2 (12:36→20:21)
[2018-06-08] MEDS: Famotidine 20 MG TAB PO SCH (12:36)
[2018-06-08] MEDS: Folic Acid/Vit B Comp W-C PO SCH (12:36)
--- NOTE | 2018-06-08 14:14 | PDOC.PN ---
- Subjective Encounter Start Date: 06/08/18 Encounter Start Time: 08:20 Pt seen for followup re: sepsis. Feels well, no complaints today. - Objective Resuscitation Status - Order Detail: 06/05/18 21:57 Resuscitation Status Routine Resuscitation Status: FULL: Full Resuscitation Vital Signs & Weight: Vital Signs (12 hours) Temp Pulse Resp BP Pulse Ox 06/08/18 12:21 85 06/08/18 12:20 85 06/08/18 12:08 97.9 F 85 16 117/75 96 06/08/18 07:23 97.8 F 68 16 117/71 96 06/08/18 03:16 97.5 F L 84 20 106/57 L 98 Weight Weight 156 lb 2 oz I&O: 06/07/18 06/08/18 06/09/18 06:59 06:59 06:59 Intake Total 300 600 Output Total 0 100 Balance 300 -100 600 Result Diagrams: 06/08/18 05:49 06/08/18 05:49 Phys Exam - Physical Examination Constitutional: NAD HEENT: moist MMs Neck: supple Respiratory: clear to auscultation bilateral Cardiovascular: RRR Gastrointestinal: soft Neurological: moves all 4 limbs Psychiatric: normal affect Dx/Plan (1) Sepsis Code(s): A41.9 - SEPSIS, UNSPECIFIED ORGANISM Status: Acute Comment: blood cultures pending. Continue IV vancomycin and Zosyn. (2) Chronic diastolic (congestive) heart failure Code(s): I50.32 - CHRONIC DIASTOLIC (CONGESTIVE) HEART FAILURE Status: Chronic Comment: stable (3) ESRD (end stage renal disease) on dialysis Code(s): N18.6 - END STAGE RENAL DISEASE; Z99.2 - DEPENDENCE ON RENAL DIALYSIS Status: Chronic Comment: nephrology service following, pt dialyzed today (4) Hypertension Code(s): I10 - ESSENTIAL (PRIMARY) HYPERTENSION Status: Chronic Comment: controlled - Plan * . Review of Systems - Review of Systems Respiratory: negative: Cough, Shortness of Breath, SOB with Excertion, Pleuritic Pain, Wheezing Cardiovascular: negative: chest pain, palpitations, orthopnea, paroxysmal nocturnal dyspnea, edema, light headedness - Medications/Allergies Allergies/Adverse Reactions: Allergies Allergy/AdvReac Type Severity Reaction Status Date / Time No Known Drug Allergies Allergy Verified 12/08/17 08:24 Medications: Current Medications Acetaminophen (Tylenol) 650 mg PO Q4H PRN PRN Reason: Headache/Fever/Mild Pain (1-3) Last Admin: 06/07/18 08:34 Dose: 650 mg Acetaminophen (Tylenol) 650 mg [place] Q4H PRN PRN Reason: Headache/Fever/Mild Pain (1-3) Acetaminophen/Codeine Phosphate (Tylenol #3) 1 tab PO BIDPRN PRN PRN Reason: Moderate Pain (4-6) Bisacodyl (Dulcolax) 10 mg PO DAILYPRN PRN PRN Reason: Constipation Captopril (Capoten) 50 mg PO BID [facility] Last Admin: 06/08/18 12:20 Dose: Not Given Carvedilol (Coreg) 6.25 mg PO BID-[facility] Last Admin: 06/08/18 12:20 Dose: Not Given Famotidine (Pepcid) 20 mg PO DAILY [facility] Last Admin: 06/08/18 12:36 Dose: 20 mg Guaifenesin/Dextromethorphan (Robitussin Dm) 15 ml PO Q4H PRN PRN Reason: Cough Heparin Sodium (Porcine) (Heparin) 5,000 units SC BID [facility] Last Admin: 06/08/18 12:36 Dose: 5,000 units Hydralazine HCl (Apresoline) 25 mg PO BID [facility] Last Admin: 06/08/18 12:21 Dose: Not Given Piperacillin Sod/Tazobactam (Sod 2.25 gm/ Sodium Chloride) 100 mls @ 200 mls/ hr IVPB 1200,2359 [facility] Last Admin: 06/08/18 12:37 Dose: 100 mls Vancomycin HCl 1 gm/ Device 200 mls @ 200 mls/hr IVPB [facility] Vancomycin HCl 750 mg/ Sodium (Chloride) 250 mls @ 250 mls/hr IVPB [facility] Vancomycin HCl 500 mg/ Sodium (Chloride) 100 mls @ 100 mls/hr IVPB [facility] Vancomycin HCl 250 mg/ Sodium (Chloride) 100 mls @ 100 mls/hr IVPB [facility] Minoxidil (Minoxidil) 2.5 mg PO BID [facility] Last Admin: 06/08/18 12:21 Dose: Not Given Miscellaneous Medication (Pharmacy To Dose) 1 each IVPB PRN PRN PRN Reason: INFECTED SHUNT Hold Vancomycin For (Level >20) 0 each FS .AT DIALYSIS [facility] Ondansetron HCl (Zofran Odt) 4 mg PO Q6H PRN PRN Reason: Nausea/Vomiting Pantoprazole Sodium (Protonix) 40 mg PO DAILY [facility] Last Admin: 06/08/18 12:11 Dose: Not Given Senna/Docusate Sodium (Senokot S) 2 tab PO BIDPRN PRN PRN Reason: Constipation Sodium Chloride (Flush - Normal Saline) 10 ml IVF Q12HR PRN PRN Reason: Saline Flush Sodium Chloride (Flush - Normal Saline) 10 ml IVF PRN PRN PRN Reason: Saline Flush Terazosin HCl (Hytrin) 5 mg PO BID [facility] Last Admin: 06/08/18 12:22 Dose: Not Given Tramadol HCl (Ultram) 50 mg PO Q12H PRN PRN Reason: Severe Pain (7-10) Vitamin B Complex/Vit C/Folic Acid (Nephro-Patito Tablet) 1 tab PO DAILY [facility] Last Admin: 06/08/18 12:36 Dose: 1 tab Zolpidem Tartrate (Ambien) 5 mg PO HSPRN PRN PRN Reason: Insomnia
[2018-06-09 06:54] LABS: #Basophils 0.1 thou/uL (0.0-0.2); #Eosinphils 0.7 thou/uL (0.0-0.7); #Lymphocytes 1.5 thou/uL (1.20-3.40); #Monocytes 0.7 thou/uL (0.11-0.59); %Basophils 1.7 % (0.0-1.0); %Eosinophils 9.6 % (0.0-10.0); %Lymphocytes 20.7 % (21.0-51.0); %Monocytes 10.3 % (0.0-10.0); %Neutrophils 57.8 % (42.0-75.0); Hemoglobin 10.4 g/dL (14.0-18.0); Mean Corpuscular HGB CONC 32.7 g/dL (32.0-36.0); Mean Corpuscular Hemoglobin 29.9 pg (27.0-31.0); Mean Corpuscular Volume 91.5 fL (78.0-98.0); Mean Platelet Volume 8.6 fL (7.4-10.4); Platelet Count 198 thou/uL (130-400); RBC Distribution Width 14.2 % (11.5-14.5); Red Blood Cell (RBC) Count 3.49 mill/uL (4.70-6.10)
[2018-06-09 07:16] LABS: Anion Gap 15 mmol/L (10-20); BUN (Urea Nitrogen) 39 mg/dL (8.4-25.7); Calc. Creatinine Clearance 9 mL/min (70-130); Calcium 10.7 mg/dL (7.8-10.44); Carbon Dioxide 26 mmol/L (22-29); Chloride 99 mmol/L (98-107); Estimated GFR-MDRD 7; Glucose 84 mg/dL (70-105); Potassium 4.7 mmol/L (3.5-5.1); Sodium 135 mmol/L (136-145)
[2018-06-09] MEDS: Folic Acid/Vit B Comp W-C PO SCH (09:07)
[2018-06-09] MEDS: Carvedilol 6.25 MG TAB PO SCH ×2 (09:07→18:25)
[2018-06-09] MEDS: Heparin 5,000 UNITS/ML VIAL SC SCH ×2 (09:08→20:57)
[2018-06-09] MEDS: hydrALAZINE 25 MG TAB PO SCH ×2 (09:10→20:57)
[2018-06-09] MEDS: Piperacillin/Tazobactam 2.25 GM in Sodium Chloride 0.9% 100 ML IVPB SCH ×2 (14:24→23:56)
--- NOTE | 2018-06-09 14:26 | PDOC.PN ---
- Subjective Encounter Start Date: 06/09/18 Encounter Start Time: 10:20 Pt seen for followup re; sepsis. Feels well, no complaints. - Objective Resuscitation Status - Order Detail: 06/05/18 21:57 Resuscitation Status Routine Resuscitation Status: FULL: Full Resuscitation MAR Reviewed: Yes Vital Signs & Weight: Vital Signs (12 hours) Temp Pulse Resp BP BP BP Pulse Ox 06/09/18 14:00 97.9 F 74 16 117/76 97 06/09/18 09:10 72 126/79 06/09/18 09:07 118/78 06/09/18 08:06 97.9 F 72 18 118/78 96 06/09/18 08:00 96 06/09/18 04:49 97.9 F 73 16 112/74 93 L Weight Weight 156 lb 2 oz I&O: 06/08/18 06/09/18 06/10/18 06:59 06:59 06:59 Intake Total 2039 Output Total 100 Balance -100 2039 Result Diagrams: 06/10/18 07:11 06/10/18 07:11 Additional Labs: labs reviewed by me Phys Exam - Physical Examination Constitutional: NAD HEENT: moist MMs Neck: supple Respiratory: clear to auscultation bilateral Cardiovascular: RRR Gastrointestinal: soft Neurological: moves all 4 limbs Psychiatric: normal affect Dx/Plan (1) Sepsis Code(s): A41.9 - SEPSIS, UNSPECIFIED ORGANISM Status: Acute Comment: Continue IV vancomycin and Zosyn. (2) Chronic diastolic (congestive) heart failure Code(s): I50.32 - CHRONIC DIASTOLIC (CONGESTIVE) HEART FAILURE Status: Chronic Comment: stable (3) ESRD (end stage renal disease) on dialysis Code(s): N18.6 - END STAGE RENAL DISEASE; Z99.2 - DEPENDENCE ON RENAL DIALYSIS Status: Chronic Comment: nephrology service following (4) Hypertension Code(s): I10 - ESSENTIAL (PRIMARY) HYPERTENSION Status: Chronic Comment: controlled - Plan * . Review of Systems - Review of Systems Cardiovascular: negative: chest pain, palpitations, orthopnea, paroxysmal nocturnal dyspnea, edema, light headedness Gastrointestinal: negative: Nausea, Vomiting, Abdominal Pain, Diarrhea, Constipation, Melena, Hematochezia - Medications/Allergies Allergies/Adverse Reactions: Allergies Allergy/AdvReac Type Severity Reaction Status Date / Time No Known Drug Allergies Allergy Verified 12/08/17 08:24 Medications: Current Medications Acetaminophen (Tylenol) 650 mg PO Q4H PRN PRN Reason: Headache/Fever/Mild Pain (1-3) Last Admin: 06/07/18 08:34 Dose: 650 mg Acetaminophen (Tylenol) 650 mg [place] Q4H PRN PRN Reason: Headache/Fever/Mild Pain (1-3) Acetaminophen/Codeine Phosphate (Tylenol #3) 1 tab PO BIDPRN PRN PRN Reason: Moderate Pain (4-6) Bisacodyl (Dulcolax) 10 mg PO DAILYPRN PRN PRN Reason: Constipation Captopril (Capoten) 50 mg PO BID [facility] Last Admin: 06/08/18 20:21 Dose: Not Given Carvedilol (Coreg) 6.25 mg PO BID-[facility] Last Admin: 06/09/18 09:07 Dose: 6.25 mg Famotidine (Pepcid) 20 mg PO DAILY [facility] Last Admin: 06/08/18 12:36 Dose: 20 mg Guaifenesin/Dextromethorphan (Robitussin Dm) 15 ml PO Q4H PRN PRN Reason: Cough Heparin Sodium (Porcine) (Heparin) 5,000 units SC BID [facility] Last Admin: 06/09/18 09:08 Dose: 5,000 units Hydralazine HCl (Apresoline) 25 mg PO BID [facility] Last Admin: 06/09/18 09:10 Dose: 25 mg Piperacillin Sod/Tazobactam (Sod 2.25 gm/ Sodium Chloride) 100 mls @ 200 mls/ hr IVPB 1200,2359 [facility] Last Admin: 06/08/18 23:44 Dose: 100 mls Vancomycin HCl 1 gm/ Device 200 mls @ 200 mls/hr IVPB [facility] Vancomycin HCl 750 mg/ Sodium (Chloride) 250 mls @ 250 mls/hr IVPB [facility] Vancomycin HCl 500 mg/ Sodium (Chloride) 100 mls @ 100 mls/hr IVPB [facility] Vancomycin HCl 250 mg/ Sodium (Chloride) 100 mls @ 100 mls/hr IVPB [facility] Minoxidil (Minoxidil) 2.5 mg PO BID [facility] Last Admin: 06/08/18 20:21 Dose: Not Given Miscellaneous Medication (Pharmacy To Dose) 1 each IVPB PRN PRN PRN Reason: INFECTED SHUNT Hold Vancomycin For (Level >20) 0 each FS .AT DIALYSIS [facility] Ondansetron HCl (Zofran Odt) 4 mg PO Q6H PRN PRN Reason: Nausea/Vomiting Pantoprazole Sodium (Protonix) 40 mg PO DAILY [facility] Last Admin: 06/09/18 09:11 Dose: 40 mg Senna/Docusate Sodium (Senokot S) 2 tab PO BIDPRN PRN PRN Reason: Constipation Sodium Chloride (Flush - Normal Saline) 10 ml IVF Q12HR PRN PRN Reason: Saline Flush Last Admin: 06/08/18 20:19 Dose: 10 ml Sodium Chloride (Flush - Normal Saline) 10 ml IVF PRN PRN PRN Reason: Saline Flush Terazosin HCl (Hytrin) 5 mg PO BID [facility] Last Admin: 06/08/18 20:20 Dose: 5 mg Tramadol HCl (Ultram) 50 mg PO Q12H PRN PRN Reason: Severe Pain (7-10) Vitamin B Complex/Vit C/Folic Acid (Nephro-Patito Tablet) 1 tab PO DAILY [facility] Last Admin: 06/09/18 09:07 Dose: 1 tab Zolpidem Tartrate (Ambien) 5 mg PO HSPRN PRN PRN Reason: Insomnia
[2018-06-09] MEDS: Terazosin HCl 5 MG CAP PO SCH ×2 (14:27→20:57)
[2018-06-09] MEDS: Famotidine 20 MG TAB PO SCH (14:27)
[2018-06-09] MEDS: Minoxidil 2.5 MG TAB PO SCH ×2 (14:27→20:55)
[2018-06-09] MEDS: Albuterol Sulfate 2.5 mg/3 ml Neb NEB SCH (19:01)
--- NOTE | 2018-06-09 21:26 | EKG ---
Test Reason : Blood Pressure : / mmHG Vent. Rate : 095 BPM Atrial Rate : 095 BPM P-R Int : 148 ms QRS Dur : 090 ms QT Int : 352 ms P-R-T Axes : 081 -01 045 degrees QTc Int : 442 ms Sinus rhythm with Fusion complexes Otherwise normal ECG Confirmed by KERVIN ZHANG ([id number]), web editor PETRONA SPEARS ([id number]) on 06/09/2018 9:25:55 PM Referred By: Confirmed By:KERVIN ZHANG
[2018-06-10] MEDS: Albuterol Sulfate 2.5 mg/3 ml Neb NEB SCH ×2 (06:20→18:47)
[2018-06-10 07:43] LABS: #Basophils 0.1 thou/uL (0.0-0.2); #Eosinphils 0.9 thou/uL (0.0-0.7); #Lymphocytes 2.1 thou/uL (1.20-3.40); #Monocytes 0.9 thou/uL (0.11-0.59); #Neutrophils 4.5 thou/uL (1.40-6.50); %Eosinophils 10.4 % (0.0-10.0); %Lymphocytes 24.7 % (21.0-51.0); %Monocytes 10.2 % (0.0-10.0); %Neutrophils 53.6 % (42.0-75.0); Hemoglobin 10.7 g/dL (14.0-18.0); Mean Corpuscular HGB CONC 32.5 g/dL (32.0-36.0); Mean Corpuscular Hemoglobin 29.7 pg (27.0-31.0); Mean Corpuscular Volume 91.4 fL (78.0-98.0); Mean Platelet Volume 8.3 fL (7.4-10.4); Platelet Count 246 thou/uL (130-400); RBC Distribution Width 14.4 % (11.5-14.5); Red Blood Cell (RBC) Count 3.62 mill/uL (4.70-6.10); White Blood Cell (WBC) Count 8.4 thou/uL (4.8-10.8)
[2018-06-10 08:08] LABS: Anion Gap 17 mmol/L (10-20); BUN (Urea Nitrogen) 51 mg/dL (8.4-25.7); Calc. Creatinine Clearance 7 mL/min (70-130); Carbon Dioxide 26 mmol/L (22-29); Chloride 100 mmol/L (98-107); Estimated GFR-MDRD 5; Glucose 88 mg/dL (70-105); Potassium 5.3 mmol/L (3.5-5.1); Sodium 138 mmol/L (136-145)
[2018-06-10] MEDS: Minoxidil 2.5 MG TAB PO SCH ×2 (09:44→19:51)
[2018-06-10] MEDS: Carvedilol 6.25 MG TAB PO SCH ×2 (09:45→17:53)
[2018-06-10] MEDS: Folic Acid/Vit B Comp W-C PO SCH (09:47)
[2018-06-10] MEDS: Famotidine 20 MG TAB PO SCH (09:47)
[2018-06-10] MEDS: hydrALAZINE 25 MG TAB PO SCH ×2 (09:47→19:51)
[2018-06-10] MEDS: Heparin 5,000 UNITS/ML VIAL SC SCH ×2 (09:54→19:51)
[2018-06-10] MEDS: Terazosin HCl 5 MG CAP PO SCH ×2 (11:29→19:51)
[2018-06-10] MEDS: Piperacillin/Tazobactam 2.25 GM in Sodium Chloride 0.9% 100 ML IVPB SCH (11:29)
--- NOTE | 2018-06-10 13:41 | PDOC.PN ---
- Subjective Encounter Start Date: 06/10/18 Encounter Start Time: 10:00 Pt seen for followup re: sepsis. feels well. - Objective Resuscitation Status - Order Detail: 06/05/18 21:57 Resuscitation Status Routine Resuscitation Status: FULL: Full Resuscitation Vital Signs & Weight: Vital Signs (12 hours) Temp Pulse Resp BP BP BP Pulse Ox 06/10/18 11:02 98.1 F 81 16 122/80 98 06/10/18 09:47 73 131/83 06/10/18 09:45 131/83 06/10/18 08:00 98 06/10/18 07:25 97.6 F 66 18 151/89 H 92 L 06/10/18 06:20 85 16 96 06/10/18 04:46 98 F 85 16 111/68 98 Weight Weight 156 lb 2 oz I&O: 06/09/18 06/10/18 06/11/18 06:59 06:59 06:59 Intake Total 0 1330 Balance 0 1330 Result Diagrams: 06/10/18 07:11 06/10/18 07:11 Phys Exam - Physical Examination Constitutional: NAD HEENT: moist MMs Neck: supple Respiratory: clear to auscultation bilateral Cardiovascular: RRR Gastrointestinal: soft Neurological: moves all 4 limbs Psychiatric: normal affect Dx/Plan (1) Sepsis Code(s): A41.9 - SEPSIS, UNSPECIFIED ORGANISM Status: Acute Comment: preliminary blood cultures negative so far, will continue IV vancomycin and Zosyn. (2) Chronic diastolic (congestive) heart failure Code(s): I50.32 - CHRONIC DIASTOLIC (CONGESTIVE) HEART FAILURE Status: Chronic Comment: stable (3) ESRD (end stage renal disease) on dialysis Code(s): N18.6 - END STAGE RENAL DISEASE; Z99.2 - DEPENDENCE ON RENAL DIALYSIS Status: Chronic Comment: dialysis per nephrology service (4) Hypertension Code(s): I10 - ESSENTIAL (PRIMARY) HYPERTENSION Status: Chronic Comment: controlled - Plan * . Review of Systems - Review of Systems Respiratory: negative: Cough, Shortness of Breath, SOB with Excertion, Pleuritic Pain, Wheezing Cardiovascular: negative: chest pain, palpitations, orthopnea, paroxysmal nocturnal dyspnea, edema, light headedness - Medications/Allergies Allergies/Adverse Reactions: Allergies Allergy/AdvReac Type Severity Reaction Status Date / Time No Known Drug Allergies Allergy Verified 12/08/17 08:24 Medications: Current Medications Acetaminophen (Tylenol) 650 mg PO Q4H PRN PRN Reason: Headache/Fever/Mild Pain (1-3) Last Admin: 06/07/18 08:34 Dose: 650 mg Acetaminophen (Tylenol) 650 mg [place] Q4H PRN PRN Reason: Headache/Fever/Mild Pain (1-3) Acetaminophen/Codeine Phosphate (Tylenol #3) 1 tab PO BIDPRN PRN PRN Reason: Moderate Pain (4-6) Albuterol Sulfate (Ventolin) 2.5 mg NEB BID-[facility] Stop: 06/12/18 06:31 Last Admin: 06/10/18 06:20 Dose: 2.5 mg Bisacodyl (Dulcolax) 10 mg PO DAILYPRN PRN PRN Reason: Constipation Captopril (Capoten) 50 mg PO BID [facility] Last Admin: 06/10/18 09:47 Dose: 50 mg Carvedilol (Coreg) 6.25 mg PO BID-[facility] Last Admin: 06/10/18 09:45 Dose: 6.25 mg Famotidine (Pepcid) 20 mg PO DAILY [facility] Last Admin: 06/10/18 09:47 Dose: 20 mg Guaifenesin/Dextromethorphan (Robitussin Dm) 15 ml PO Q4H PRN PRN Reason: Cough Heparin Sodium (Porcine) (Heparin) 5,000 units SC BID [facility] Last Admin: 06/10/18 09:54 Dose: 5,000 units Hydralazine HCl (Apresoline) 25 mg PO BID [facility] Last Admin: 06/10/18 09:47 Dose: 25 mg Piperacillin Sod/Tazobactam (Sod 2.25 gm/ Sodium Chloride) 100 mls @ 200 mls/ hr IVPB 1200,2359 [facility] Last Admin: 06/10/18 11:29 Dose: 100 mls Vancomycin HCl 1 gm/ Device 200 mls @ 200 mls/hr IVPB [facility] Vancomycin HCl 750 mg/ Sodium (Chloride) 250 mls @ 250 mls/hr IVPB [facility] Vancomycin HCl 500 mg/ Sodium (Chloride) 100 mls @ 100 mls/hr IVPB [facility] Vancomycin HCl 250 mg/ Sodium (Chloride) 100 mls @ 100 mls/hr IVPB [facility] Minoxidil (Minoxidil) 2.5 mg PO BID [facility] Last Admin: 06/10/18 09:44 Dose: Not Given Miscellaneous Medication (Pharmacy To Dose) 1 each IVPB PRN PRN PRN Reason: INFECTED SHUNT Hold Vancomycin For (Level >20) 0 each FS .AT DIALYSIS [facility] Ondansetron HCl (Zofran Odt) 4 mg PO Q6H PRN PRN Reason: Nausea/Vomiting Pantoprazole Sodium (Protonix) 40 mg PO DAILY [facility] Last Admin: 06/10/18 09:49 Dose: Not Given Senna/Docusate Sodium (Senokot S) 2 tab PO BIDPRN PRN PRN Reason: Constipation Sodium Chloride (Flush - Normal Saline) 10 ml IVF Q12HR PRN PRN Reason: Saline Flush Last Admin: 06/08/18 20:19 Dose: 10 ml Sodium Chloride (Flush - Normal Saline) 10 ml IVF PRN PRN PRN Reason: Saline Flush Terazosin HCl (Hytrin) 5 mg PO BID [facility] Last Admin: 06/10/18 11:29 Dose: 5 mg Tramadol HCl (Ultram) 50 mg PO Q12H PRN PRN Reason: Severe Pain (7-10) Vitamin B Complex/Vit C/Folic Acid (Nephro-Patito Tablet) 1 tab PO DAILY [facility] Last Admin: 06/10/18 09:47 Dose: 1 tab Zolpidem Tartrate (Ambien) 5 mg PO HSPRN PRN PRN Reason: Insomnia
--- NOTE | 2018-06-10 15:24 | PRG ---
DATE OF SERVICE: 06/10/2018 SUBJECTIVE: Feeling better pretty much back to baseline. Has not had a fever. OBJECTIVE: VITAL SIGNS: Normal. LUNGS: Clear. HEART: S1, S2. Regular rate. Right tunnelled catheter appears okay. ABDOMEN: No abdominal pain. No tenderness. MUSCULOSKELETAL: No joint symptoms or back tenderness. LABORATORY DATA: White cell count 8.4, hemoglobin 10.7, platelets 246. Chemistry was okay, except for the expected findings from the end-stage renal disease. All the blood cultures are negative at 48 hours. ASSESSMENT AND DISCUSSION: Chronic renal insufficiency of uncertain etiology, on hemodialysis access problems due to clotting of left arteriovenous fistula, and new onset of fever. Thus far, blood cultures are negative, and if they remain negative, then discharge planning with 2 weeks on vancomycin and sliding scale through dialysis. He may have recrudescence of the problem down the road. We may have missed the bacteremia associated with the catheter colonization. In that case, he will probably recrudesce and have to have the catheter removed down the road, hopefully not. Job ID: [id number]
[2018-06-11] MEDS: Piperacillin/Tazobactam 2.25 GM in Sodium Chloride 0.9% 100 ML IVPB SCH ×2 (00:28→12:47)
[2018-06-11] MEDS: Albuterol Sulfate 2.5 mg/3 ml Neb NEB SCH (06:47)
[2018-06-11 09:17] LABS: Vancomycin, Random 10.5 ug/mL (See Comment)
[2018-06-11] MEDS ORDERED: Heparin 10,000 UNITS/ 10 ML VIAL ONE (12:00)
[2018-06-11 12:17] VITALS: BP 147/90; TEMP 97.7
[2018-06-11] MEDS: Carvedilol 6.25 MG TAB PO SCH (12:47)
[2018-06-11] MEDS: hydrALAZINE 25 MG TAB PO SCH (12:47)
[2018-06-11] MEDS: Famotidine 20 MG TAB PO SCH (12:50)
[2018-06-11] MEDS: Folic Acid/Vit B Comp W-C PO SCH (12:50)
[2018-06-11] MEDS: Heparin 5,000 UNITS/ML VIAL SC SCH (12:50)
[2018-06-11] MEDS: Minoxidil 2.5 MG TAB PO SCH (12:50)
[2018-06-11] MEDS: Terazosin HCl 5 MG CAP PO SCH (12:51)
--- NOTE | 2018-06-12 04:36 | DIS ---
DATE OF ADMISSION: 06/05/2018 DATE OF DISCHARGE: 06/11/2018 PRIMARY CARE PROVIDER: Kaylen Kramer. DISCHARGE DIAGNOSES: 1. Sepsis. 2. Suspected bacteremia. CONDITION OF PATIENT ON THE DAY OF DISCHARGE: Stable. I assessed Mr. Jensen on the day of discharge. He denies any chest pain or shortness of breath. Vital signs are stable. S1 and S2 are heard, regular. Lungs are clear to auscultation bilaterally. DISCHARGE MEDICATIONS: Vancomycin by sliding scale with dialysis for 2 weeks. Otherwise, no change was made to patient's pre-admission home medications as dictated on history and physical note by Dr. Barber on June 06, 2018. CONSULTATIONS DURING THIS HOSPITALIZATION: 1. Nephrology, Kd Munoz MD. 2. Infectious Diseases, Kar Rivero MD. HOSPITAL COURSE: Mr. Jensen is a pleasant 53-year-old gentleman, who was admitted to [facility] on June 05, 2018, for sepsis. Please refer to Dr. Barber's history and physical note dated June 06, 2018, for further details. He was seen by Infectious Disease Service. They recommended that if the blood cultures come back negative, he should be treated with 2 weeks of vancomycin by sliding scale with dialysis. If he has recrudescence of bacteremia, he may need to have the dialysis catheter removed. Mr. Jensen continued to do well during this hospitalization. Final blood cultures were negative. He is being discharged home in a stable condition. On June 10, he had white count 8400, hemoglobin 10.7, and platelet count 246,000. He also had sodium 138, potassium 5.3, blood urea nitrogen 51, and creatinine 12.19. Many thanks for allowing me to participate in your patient's care. Please feel free to contact me with any questions or concerns. DISCHARGE DESTINATION: Home. Total amount of time spent coordinating this discharge: 33 minutes. Job ID: [id number]
--- NOTE | 2018-06-13 17:58 | PQF ---
ROSITA SOLARES SHANIKA INTERIANO [id number] CLINICAL DOCUMENTATION CLARIFICATION FORM: POST DISCHARGE Addendum to original discharge summary date: 06/15/2018 Late entry note date: __ DATE: 06/13/18 ATTN: Please exercise your independent, professional judgment in responding to the clarification form. Clinical indicators are provided on the bottom of this form for your review Please check appropriate box(es): [ X ] Sepsis due to: (Pna, UTI, gangrenous gall bladder, etc.) suspected bacteremia Due to: [ ] Device (please specify) [ [ AV Fistula [ ] Implant [ ] Graft [ ] Infusion [ ] SIRS due to non-infectious process (please specify etiology) [ ] with organ dysfunction [ ] without organ dysfunction [ ] Severe sepsis with acute organ dysfunction of: (Examples: respiratory failure, encephalopathy, acute kidney failure, other) [ ] Septic Shock [ ] Localized infection without sepsis [ ] Other diagnosis [ ] UnIV antibiotics - broad spectrum IV Fluids (This form is maintained as a part of the permanent medical record) 2014 [employer] All Rights Reserved Mars [email or web address] [phone] able to determine In addition, please specify: Present on Admission (POA): [ ] Yes [ ] No [ ] Unable to determine For continuity of documentation, please document condition throughout progress notes and discharge summary. Thank You. CLINICAL INDICATORS - SIGNS / SYMPTOMS / LABS Altered mental status Fever or hypothermia (<96.8 F/36 C or > 100.4 F/38C) Respiratory rate >20/min, Hypoxemia, WBC count (>12,000/mm^4 or <4000/mm^3 or 10% neuts, 10% bands) RISK FACTORS ESRD - Dialysis TREATMENTS: MTDD
--- NOTE | 2018-06-15 09:26 | PDOC.EVN ---
Event Note - Event Note Event Note: Late Entry Note: Patient's discharge diagnosis is sepsis, suspected to be most likely secondary to bacteremia.
== END 2018-06-11 15:06 | disposition home or self-care (01) | DRG 871 ==
LOC: ERS 17:22 → ERHOLD 19:29 → 2NO 06-06 14:54 → T4-B 06-08 21:29
PROVIDERS: ADMIT Emergency Medicine; ATTEND Emergency Medicine
DX: A41.9 Sepsis, unspecified organism (principal); N18.6 End stage renal disease; I50.32 Chronic diastolic (congestive) heart failure; I13.2 Hypertensive heart and chronic kidney disease with heart failure and with stage 5 chronic kidney disease, or end stage renal disease; Z99.2 Dependence on renal dialysis; Z79.899 Other long term (current) drug therapy; Z87.891 Personal history of nicotine dependence
CPT/HCPCS: 36415; 36416; 71045; 80048; 80053; 80202; 83605; 85025; 87040; 87340; 90935; 93005; 94640; G0257; J1644; J2543; J3370; J7050; J7611; S0028